=== PATIENT | female | born 2000 | race Caucasian/White ===

== ENCOUNTER 2021-11-04 02:40 | Emergency (ER) | payer SELFPAY | END 2021-11-04 03:04 | LOC: MW.ED 02:40 | DX: I10 Essential (primary) hypertension (principal); Z86.16 Personal history of COVID-19 | CPT/HCPCS: 99282; 99283 ==

== ENCOUNTER 2022-05-29 11:32 | Day surgery (SDC) | payer MEDICAID ==
[~2022-05-29 11:32] MED LIST: Lactated Ringers 1,000 ML IV SCH; Propofol 200 MG/20 ML SDV ONE; Sodium Chloride 0.9% 10 ML Syringe FLUSH PRN; Sodium Chloride 0.9% 2.5 ML Syringe FLUSH PRN; Sodium Chloride 0.9% 20 ML SDV IV PRN
[2022-05-29] MEDS ORDERED: Midazolam 1 MG/ML 2 ML SDV ONE (12:20)
[2022-05-29] MEDS ORDERED: Lidocaine 2% 5 ML SDV ONE (12:28)
== END 2022-05-29 13:23 | disposition home or self-care (01) ==
LOC: MW.SDS 11:32
PROVIDERS: ATTEND Surgery
DX: R10.13 Epigastric pain (principal); F41.9 Anxiety disorder, unspecified; E55.9 Vitamin D deficiency, unspecified; I10 Essential (primary) hypertension; J45.909 Unspecified asthma, uncomplicated; K21.9 Gastro-esophageal reflux disease without esophagitis; F32.A Depression, unspecified; E66.9 Obesity, unspecified; Z79.899 Other long term (current) drug therapy; Z98.890 Other specified postprocedural states; Z86.16 Personal history of COVID-19; Z87.891 Personal history of nicotine dependence; Z68.41 Body mass index [BMI] 40.0-44.9, adult
CPT/HCPCS: 43239; 81025; J2250; J2704; J7120; 00731; J3490

== ENCOUNTER 2022-12-04 08:57 | Inpatient (IN) | payer MEDICAID ==
[2022-12-04] MEDS ORDERED: Ondansetron 4 MG Tab.DIS PO ONE (09:06)
[2022-12-04] MEDS ORDERED: Sodium Chloride 0.9% 1,000 ML IV ONE (09:06)
[2022-12-04] MEDS ORDERED: Sodium Chloride 0.9% 2.5 ML Syringe FLUSH PRN ×2 (09:08→15:48)
[2022-12-04] MEDS ORDERED: Sodium Chloride 0.9% 10 ML Syringe FLUSH PRN ×2 (09:08→15:48)
[2022-12-04] MEDS ORDERED: Ondansetron 4 MG/2 ML SDV IVPUSH ONE ×2 (09:23→15:03)
[2022-12-04 09:28] LABS: BASOPHILS PERCENT AUTO 0.2 % (0.0-1.5); EOSINOPHILS ABSOLUTE AUTO 0.1 K/uL (0.0-0.7); EOSINOPHILS PERCENT AUTO 0.4 % (0.0-7.0); HEMATOCRIT 41.2 % (36.0-46.0); HEMOGLOBIN 14.5 g/dL (12.0-16.0); LYMPHOCYTES ABSOLUTE AUTO 4.4 K/uL (0.6-2.4); LYMPHOCYTES PERCENT AUTO 21.9 % (16.0-40.0); MEAN CORPUSCULAR HGB CONC 35.2 g/dL (31.0-37.0); MEAN CORPUSCULAR VOLUME 85.1 fL (80.0-98.0); NEUTROPHILS ABSOLUTE AUTO 14.6 K/uL (1.4-5.7); NEUTROPHILS PERCENT AUTO 72.5 % (48.0-80.0); NRBC ABSOLUTE 0 K/uL; PLATELET COUNT,PLT 505 K/uL (150-400); RED BLOOD CELL COUNT 4.84 M/uL (4.30-5.90); WHITE BLOOD CELL COUNT,WBC 20.19 K/uL (4.0-11.0)
[2022-12-04 10:05] LABS: INR 1.02 (0.86-1.11)
[2022-12-04] MEDS ORDERED: Metoclopramide 10 MG/2 ML SDV IVPUSH ONE ×2 (10:11→11:26)
[2022-12-04] MEDS ORDERED: diphenhydrAMINE 50 MG/ML SDV IVPUSH ONE (10:11)
[2022-12-04 10:25] LABS: ALANINE AMINOTRANSFERASE,ALT 27 IU/L (14-63); ALBUMIN 4.1 g/dL (3.4-5.0); ALKALINE PHOSPHATASE 74 U/L (46-116); ASPARTATE AMNIOTRANSFERASE,AST 14 IU/L (15-37); BILIRUBIN TOTAL 0.8 mg/dL (0.2-1.0); BLOOD UREA NITROGEN,BUN 7 mg/dL (7.0-18.0); CALCIUM 9.7 mg/dL (8.5-10.1); CARBON DIOXIDE,CO2 16.8 mmol/L (21.0-32.0); CHLORIDE,CL 98 mmol/L (98-107); CREATININE 0.7 mg/dL (0.6-1.0); GLUCOSE RANDOM 159 mg/dL (74-106); LIPASE 54 U/L (73-393); MAGNESIUM 1.6 mg/dL (1.8-2.4); POTASSIUM,K 3.1 mmol/L (3.5-5.1); PROTEIN TOTAL,TP 8.3 g/dL (6.4-8.2); SODIUM,NA 135 mmol/L (136-145); TSH ULTRASENSITIVE 0.87 uIU/mL (0.36-3.74)
[2022-12-04 10:27] LABS: ESTIMATED GFR 125 mL/min (>60)
[2022-12-04] MEDS ORDERED: Magnesium Sulfate/Water 2 GM in Premix Bag 1 BAG IV ONE (10:29)
[2022-12-04 10:50] LABS: LACTIC ACID 3.4 mmol/L (0.4-2.0)
[2022-12-04] MEDS ORDERED: Lactated Ringers 1,000 ML IV ONE ×2 (10:53→16:06)
[2022-12-04] MEDS ORDERED: Albuterol/Ipratropium 3.0-0.5 MG/3 ML Neb Soln NEB ONE (10:56)
[2022-12-04] MEDS ORDERED: cefTRIAXone 2 GM in Sodium Chloride 0.9% 50 ML IV ONE (11:36)
[2022-12-04 11:54] LABS: APPEARANCE,URINE CLEAR; BILIRUBIN,URINE NEGATIVE (NEGATIVE); COLOR,URINE YELLOW; GLUCOSE,URINE 100 mg/dL (NEGATIVE); KETONES,URINE >=80 mg/dL (NEGATIVE); LEUKOCYTE ESTERASE,URINE NEGATIVE (NEGATIVE); NITRITE,URINE POSITIVE (NEGATIVE); OCCULT BLOOD,URINE NEGATIVE (NEGATIVE); PH,URINE 6.5 (5.0-8.0); PROTEIN,URINE TRACE mg/dL (NEGATIVE); UROBILINOGEN,URINE 0.2 EU/dL (<2.0)
[2022-12-04 12:20] LABS: BACTERIA,URINE MODERATE (NEGATIVE); EPITHELIAL CELLS,URINE MANY (NONE-FEW); RBC,URINE NONE SEEN (0-2/HPF); WBC,URINE NONE SEEN (0-5/HPF)
[2022-12-04] MEDS ORDERED: Dextrose 5%-Lactated Ringers 1,000 ML IV SCH (12:45)
[2022-12-04] MEDS ORDERED: Morphine 2 MG/ML SYRINGE IVPUSH ONE (15:03)
[2022-12-04] MEDS ORDERED: Naloxone 0.4 MG/ML SDV IVPUSH PRN ×2 (15:03→15:48)
[2022-12-04] MEDS ORDERED: Morphine 2 MG/ML SYRINGE IVPUSH PRN (15:48)
[2022-12-04] MEDS ORDERED: Albuterol 0.083% 2.5 MG/3 ML Neb Soln NEB PRN (15:48)
[2022-12-04] MEDS ORDERED: diphenhydrAMINE 50 MG/ML SDV IVPUSH PRN (16:01)
[2022-12-04 16:04] LABS: AMPHETAMINES SCREEN, URINE NEGATIVE (CUTOFF=500); BARBITURATE SCREEN,URINE NEGATIVE (CUTOFF=200); BENZODIAZEPINES SCREEN,URINE PRESUMPTIVE POSITIVE (CUTOFF=150); BUPRENORPHINE SCREEN,URINE NEGATIVE (CUTOFF=10); METHADONE SCREEN, URINE NEGATIVE (CUTOFF=200); METHAMPHETAMINES SCREEN, URINE NEGATIVE (CUTOFF=500); OXYCODONE SCREEN,URINE NEGATIVE (CUT0FF=100); PCP SCREEN,URINE NEGATIVE (CUTOFF=25); PROPOXYPHENE SCREEN,URINE NEGATIVE (CUTOFF=300); THC SCREEN,URINE 20 NG/ML PRESUMPTIVE POSITIVE (CUTOFF=50)
[2022-12-04] MEDS: Lactated Ringers 1,000 ML IV SCH (16:08)
[2022-12-04] MEDS: Potassium Chloride 20 MEQ in Premix Bag 1 BAG IV SCH ×2 (16:08→18:04)
[2022-12-04] MEDS ORDERED: Propranolol 10 MG Tab PO PRN (16:09)
[2022-12-04] MEDS ORDERED: Labetalol 100 MG/20 ML MDV IVPUSH PRN (16:14)
[2022-12-04] MEDS ORDERED: Piperacillin/Tazobactam 3.375 GM in Sodium Chloride 0.9% 100 ML IV SCH (16:15)
[2022-12-04] MEDS: ClonazePAM 0.5 MG Tab PO PRN (16:35)
[2022-12-04] MEDS: Promethazine 25 MG/ML SDV IM PRN (17:46)
[2022-12-04 19:40] LABS: LACTIC ACID 2.5 mmol/L (0.4-2.0)
[2022-12-04] MEDS: Ondansetron 4 MG/2 ML SDV IVPUSH PRN (20:04)
[2022-12-04] MEDS: HYDROmorphone 1 MG/ML Syringe IVPUSH PRN (20:04)
[2022-12-05] MEDS: Lactated Ringers 1,000 ML IV SCH ×5 (00:41→21:03)
[2022-12-05] MEDS: Ondansetron 4 MG/2 ML SDV IVPUSH PRN ×5 (04:39→21:03)
[2022-12-05] MEDS: HYDROmorphone 1 MG/ML Syringe IVPUSH PRN ×5 (04:39→21:03)
[2022-12-05 07:25] LABS: BASOPHILS PERCENT AUTO 0.1 % (0.0-1.5); EOSINOPHILS PERCENT AUTO 0.1 % (0.0-7.0); HEMATOCRIT 38.1 % (36.0-46.0); HEMOGLOBIN 12.9 g/dL (12.0-16.0); LYMPHOCYTES ABSOLUTE AUTO 2.5 K/uL (0.6-2.4); LYMPHOCYTES PERCENT AUTO 16.6 % (16.0-40.0); MEAN CORPUSCULAR HEMOGLOBIN 29.7 pg (27.0-32.0); MEAN CORPUSCULAR HGB CONC 33.9 g/dL (31.0-37.0); MEAN CORPUSCULAR VOLUME 87.8 fL (80.0-98.0); MONOCYTES ABSOLUTE AUTO 1.1 K/uL (0.0-0.8); MONOCYTES PERCENT AUTO 7.1 % (0.0-15.0); NEUTROPHILS ABSOLUTE AUTO 11.4 K/uL (1.4-5.7); NEUTROPHILS PERCENT AUTO 76.1 % (48.0-80.0); NRBC ABSOLUTE 0 K/uL; PLATELET COUNT,PLT 378 K/uL (150-400); RED BLOOD CELL COUNT 4.34 M/uL (4.30-5.90); WHITE BLOOD CELL COUNT,WBC 14.96 K/uL (4.0-11.0)
[2022-12-05 07:43] LABS: CALCIUM 8.9 mg/dL (8.5-10.1); CARBON DIOXIDE,CO2 27.8 mmol/L (21.0-32.0); CREATININE 0.6 mg/dL (0.6-1.0); EST CRCL DRUG DOSING (CG) 116.32 mL/min; MAGNESIUM 2.2 mg/dL (1.8-2.4); POTASSIUM,K 3.7 mmol/L (3.5-5.1)
[2022-12-05] MEDS: cefTRIAXone 2 GM in Sodium Chloride 0.9% 100 ML IV SCH (12:29)
[2022-12-05] MEDS: Acetaminophen 325 MG Tab PO PRN (13:21)
[2022-12-05] MEDS: ClonazePAM 0.5 MG Tab PO PRN (21:04)
[2022-12-06] MEDS: HYDROmorphone 1 MG/ML Syringe IVPUSH PRN ×5 (01:03→21:50)
[2022-12-06] MEDS: Ondansetron 4 MG/2 ML SDV IVPUSH PRN ×5 (01:03→21:50)
[2022-12-06] MEDS: Lactated Ringers 1,000 ML IV SCH ×2 (03:46→10:12)
[2022-12-06 06:09] LABS: BASOPHILS PERCENT AUTO 0.3 % (0.0-1.5); EOSINOPHILS ABSOLUTE AUTO 0.1 K/uL (0.0-0.7); EOSINOPHILS PERCENT AUTO 0.6 % (0.0-7.0); HEMATOCRIT 35.9 % (36.0-46.0); HEMOGLOBIN 11.8 g/dL (12.0-16.0); LYMPHOCYTES ABSOLUTE AUTO 3.9 K/uL (0.6-2.4); LYMPHOCYTES PERCENT AUTO 34.7 % (16.0-40.0); MEAN CORPUSCULAR HEMOGLOBIN 29.3 pg (27.0-32.0); MEAN CORPUSCULAR HGB CONC 32.9 g/dL (31.0-37.0); MEAN CORPUSCULAR VOLUME 89.1 fL (80.0-98.0); MONOCYTES ABSOLUTE AUTO 0.8 K/uL (0.0-0.8); MONOCYTES PERCENT AUTO 6.8 % (0.0-15.0); NEUTROPHILS ABSOLUTE AUTO 6.5 K/uL (1.4-5.7); NEUTROPHILS PERCENT AUTO 57.6 % (48.0-80.0); NRBC ABSOLUTE 0 K/uL; PLATELET COUNT,PLT 328 K/uL (150-400); RED BLOOD CELL COUNT 4.03 M/uL (4.30-5.90); WHITE BLOOD CELL COUNT,WBC 11.26 K/uL (4.0-11.0)
[2022-12-06 06:46] LABS: CALCIUM 8.3 mg/dL (8.5-10.1); CARBON DIOXIDE,CO2 24.4 mmol/L (21.0-32.0); CREATININE 0.6 mg/dL (0.6-1.0); EST CRCL DRUG DOSING (CG) 116.32 mL/min; MAGNESIUM 1.9 mg/dL (1.8-2.4); PHOSPHORUS 2.9 mg/dL (2.6-4.7); POTASSIUM,K 3.6 mmol/L (3.5-5.1)
[2022-12-06] MEDS: cefTRIAXone 2 GM in Sodium Chloride 0.9% 100 ML IV SCH (12:05)
[2022-12-06] MEDS: ClonazePAM 0.5 MG Tab PO PRN (20:11)
[2022-12-06] MEDS: Acetaminophen 325 MG Tab PO PRN (20:11)
[2022-12-07] MEDS: Ondansetron 4 MG/2 ML SDV IVPUSH PRN ×2 (06:05→10:07)
[2022-12-07] MEDS: HYDROmorphone 1 MG/ML Syringe IVPUSH PRN ×2 (06:05→10:07)
[2022-12-07 06:17] LABS: BASOPHILS PERCENT AUTO 0.1 % (0.0-1.5); EOSINOPHILS ABSOLUTE AUTO 0.1 K/uL (0.0-0.7); EOSINOPHILS PERCENT AUTO 0.9 % (0.0-7.0); HEMATOCRIT 36.9 % (36.0-46.0); HEMOGLOBIN 12.2 g/dL (12.0-16.0); LYMPHOCYTES ABSOLUTE AUTO 2.7 K/uL (0.6-2.4); LYMPHOCYTES PERCENT AUTO 28.9 % (16.0-40.0); MEAN CORPUSCULAR HGB CONC 33.1 g/dL (31.0-37.0); MEAN CORPUSCULAR VOLUME 87.6 fL (80.0-98.0); MONOCYTES ABSOLUTE AUTO 0.6 K/uL (0.0-0.8); MONOCYTES PERCENT AUTO 6.2 % (0.0-15.0); NEUTROPHILS ABSOLUTE AUTO 5.9 K/uL (1.4-5.7); NEUTROPHILS PERCENT AUTO 63.9 % (48.0-80.0); NRBC ABSOLUTE 0 K/uL; PLATELET COUNT,PLT 335 K/uL (150-400); RED BLOOD CELL COUNT 4.21 M/uL (4.30-5.90); WHITE BLOOD CELL COUNT,WBC 9.18 K/uL (4.0-11.0)
[2022-12-07 06:34] LABS: CALCIUM 8.7 mg/dL (8.5-10.1); CARBON DIOXIDE,CO2 23.8 mmol/L (21.0-32.0); CREATININE 0.6 mg/dL (0.6-1.0); EST CRCL DRUG DOSING (CG) 116.32 mL/min; POTASSIUM,K 3.5 mmol/L (3.5-5.1)
[2022-12-07] MEDS: Acetaminophen 325 MG Tab PO PRN (07:21)
[2022-12-07] MEDS: Promethazine 25 MG/ML SDV IM PRN (07:25)
[2022-12-07] MEDS: cefTRIAXone 2 GM in Sodium Chloride 0.9% 100 ML IV SCH (11:13)
== END 2022-12-07 15:45 | disposition home or self-care (01) | DRG 832 ==
LOC: MW.ED 08:57 → MW.MS 14:54
PROVIDERS: ADMIT Internal Medicine; ATTEND Internal Medicine
DX: O23.01 Infections of kidney in pregnancy, first trimester (principal); N10 Acute pyelonephritis; O10.911 Unspecified pre-existing hypertension complicating pregnancy, first trimester; O21.0 Mild hyperemesis gravidarum; O99.611 Diseases of the digestive system complicating pregnancy, first trimester; O99.211 Obesity complicating pregnancy, first trimester; O99.511 Diseases of the respiratory system complicating pregnancy, first trimester; O99.321 Drug use complicating pregnancy, first trimester; F12.10 Cannabis abuse, uncomplicated; O99.341 Other mental disorders complicating pregnancy, first trimester; F41.9 Anxiety disorder, unspecified; F32.A Depression, unspecified; E66.9 Obesity, unspecified; K21.9 Gastro-esophageal reflux disease without esophagitis; J45.909 Unspecified asthma, uncomplicated; Z20.822 Contact with and (suspected) exposure to COVID-19; Z3A.08 8 weeks gestation of pregnancy; Z79.899 Other long term (current) drug therapy; Z86.16 Personal history of COVID-19
CPT/HCPCS: 36415; 71045; 76775; 76801; 80053; 80305; 81001; 83605; 83690; 83735; 84443; 84484; 84702; 85025; 85610; 87040 ×2; 87086; 87635; 93005; 96361; 96365; 96367; 96375; 96376; 99285; J0696; J1200; J2405; J2765 ×2; J3475; J3490 ×2; J7030; J7120; J7121; 80048; 82947; 84100; 93010; 99283; A9270-GY; J1170; J2270; J2550; J3480; J7620-GY; U0002

== ENCOUNTER 2022-12-09 08:50 | Emergency (ER) | payer MEDICAID ==
[2022-12-09] MEDS ORDERED: Sodium Chloride 0.9% 1,000 ML IV ONE (09:21)
[2022-12-09] MEDS ORDERED: diphenhydrAMINE 50 MG/ML SDV IVPUSH ONE (09:21)
[2022-12-09] MEDS ORDERED: droPERidol 5 MG/2 ML SDV IVPUSH ONE ×2 (09:21→11:33)
[2022-12-09 09:44] LABS: BILIRUBIN,URINE NEGATIVE (NEGATIVE); COLOR,URINE YELLOW; GLUCOSE,URINE NEGATIVE (NEGATIVE); KETONES,URINE TRACE mg/dL (NEGATIVE); LEUKOCYTE ESTERASE,URINE SMALL (NEGATIVE); NITRITE,URINE NEGATIVE (NEGATIVE); OCCULT BLOOD,URINE NEGATIVE (NEGATIVE); PH,URINE 7.5 (5.0-8.0); PROTEIN,URINE TRACE mg/dL (NEGATIVE); UROBILINOGEN,URINE 0.2 EU/dL (<2.0)
[2022-12-09 09:46] LABS: BASOPHILS PERCENT AUTO 0.2 % (0.0-1.5); EOSINOPHILS ABSOLUTE AUTO 0.2 K/uL (0.0-0.7); EOSINOPHILS PERCENT AUTO 1.5 % (0.0-7.0); HEMATOCRIT 40.6 % (36.0-46.0); HEMOGLOBIN 13.9 g/dL (12.0-16.0); LYMPHOCYTES ABSOLUTE AUTO 2.6 K/uL (0.6-2.4); LYMPHOCYTES PERCENT AUTO 23.7 % (16.0-40.0); MEAN CORPUSCULAR HEMOGLOBIN 29.7 pg (27.0-32.0); MEAN CORPUSCULAR HGB CONC 34.2 g/dL (31.0-37.0); MEAN CORPUSCULAR VOLUME 86.8 fL (80.0-98.0); MONOCYTES ABSOLUTE AUTO 0.7 K/uL (0.0-0.8); MONOCYTES PERCENT AUTO 5.9 % (0.0-15.0); NEUTROPHILS ABSOLUTE AUTO 7.7 K/uL (1.4-5.7); NEUTROPHILS PERCENT AUTO 68.7 % (48.0-80.0); NRBC ABSOLUTE 0 K/uL; PLATELET COUNT,PLT 377 K/uL (150-400); RED BLOOD CELL COUNT 4.68 M/uL (4.30-5.90); WHITE BLOOD CELL COUNT,WBC 11.16 K/uL (4.0-11.0)
[2022-12-09 09:53] LABS: AMPHETAMINES SCREEN, URINE NEGATIVE (CUTOFF=500); BARBITURATE SCREEN,URINE NEGATIVE (CUTOFF=200); BENZODIAZEPINES SCREEN,URINE PRESUMPTIVE POSITIVE (CUTOFF=150); BUPRENORPHINE SCREEN,URINE NEGATIVE (CUTOFF=10); METHADONE SCREEN, URINE NEGATIVE (CUTOFF=200); METHAMPHETAMINES SCREEN, URINE NEGATIVE (CUTOFF=500); OXYCODONE SCREEN,URINE NEGATIVE (CUT0FF=100); PCP SCREEN,URINE NEGATIVE (CUTOFF=25); PROPOXYPHENE SCREEN,URINE NEGATIVE (CUTOFF=300); THC SCREEN,URINE 20 NG/ML PRESUMPTIVE POSITIVE (CUTOFF=50)
[2022-12-09 10:02] LABS: BASE EXCESS VENOUS 2.1 (-2.0-3.0); BICARBONATE,VENOUS 25 mEq/L (23-28); PCO2 VENOUS 34 mmHG (41-51); PH,VENOUS 7.48 (7.31-7.41)
[2022-12-09 10:08] LABS: ALANINE AMINOTRANSFERASE,ALT 30 IU/L (14-63); ALBUMIN 3.8 g/dL (3.4-5.0); ALKALINE PHOSPHATASE 65 U/L (46-116); ASPARTATE AMNIOTRANSFERASE,AST 12 IU/L (15-37); BILIRUBIN TOTAL 0.7 mg/dL (0.2-1.0); BLOOD UREA NITROGEN,BUN 11 mg/dL (7.0-18.0); CALCIUM 10.1 mg/dL (8.5-10.1); CARBON DIOXIDE,CO2 23.7 mmol/L (21.0-32.0); CHLORIDE,CL 99 mmol/L (98-107); CREATININE 0.7 mg/dL (0.6-1.0); ETHANOL BLOOD MEDICAL <3 mg/dL; GLUCOSE RANDOM 103 mg/dL (74-106); LIPASE 73 U/L (73-393); MAGNESIUM 1.7 mg/dL (1.8-2.4); PHOSPHORUS 3.2 mg/dL (2.6-4.7); POTASSIUM,K 3.6 mmol/L (3.5-5.1); PROTEIN TOTAL,TP 7.5 g/dL (6.4-8.2); SODIUM,NA 137 mmol/L (136-145); TSH ULTRASENSITIVE 0.46 uIU/mL (0.36-3.74)
[2022-12-09 10:09] LABS: APPEARANCE,URINE CLOUDY
[2022-12-09 10:10] LABS: EPITHELIAL CELLS,URINE MODERATE (NONE-FEW)
[2022-12-09 10:11] LABS: AMORPHOUS SEDIMENT,URINE HEAVY (NEGATIVE); BACTERIA,URINE 2+ (NEGATIVE); MUCUS,URINE LIGHT (NONE-MOD)
[2022-12-09 10:11] LABS: ESTIMATED GFR 125 mL/min (>60)
[2022-12-09 10:12] LABS: PO2 VENOUS < 30 mmHG
[2022-12-09 10:36] LABS: LACTIC ACID 2.2 mmol/L (0.4-2.0)
[2022-12-09] MEDS ORDERED: Naloxone 0.4 MG/ML SDV IVPUSH PRN (11:35)
[2022-12-09] MEDS ORDERED: 50% Dextrose in Water 50 ML Syringe IVPUSH ONE (11:35)
[2022-12-09] MEDS ORDERED: fentaNYL 100 MCG/2 ML SDV IVPUSH ONE (11:35)
== END 2022-12-09 12:50 | disposition left against medical advice (07) ==
LOC: MW.ED 08:50
DX: O21.0 Mild hyperemesis gravidarum (principal); O99.321 Drug use complicating pregnancy, first trimester; F12.90 Cannabis use, unspecified, uncomplicated; O10.911 Unspecified pre-existing hypertension complicating pregnancy, first trimester; O99.511 Diseases of the respiratory system complicating pregnancy, first trimester; J45.909 Unspecified asthma, uncomplicated; O99.611 Diseases of the digestive system complicating pregnancy, first trimester; K21.9 Gastro-esophageal reflux disease without esophagitis; O99.211 Obesity complicating pregnancy, first trimester; Z86.16 Personal history of COVID-19; Z79.899 Other long term (current) drug therapy; Z3A.09 9 weeks gestation of pregnancy
CPT/HCPCS: 36415; 76801; 80053; 80305; 80307; 81001; 82803; 83605; 83690; 83735; 84100; 84443; 85025; 87040; 93005; 96361; 96374; 96375; 96376; 99284; J1200; J1790; J3010; J7030; 93010; 99283; J3490

== ENCOUNTER 2022-12-18 15:51 | Observation (INO) | payer MEDICAID ==
[2022-12-18] MEDS ORDERED: Sodium Chloride 0.9% 1,000 ML IV ONE ×2 (16:57→17:50)
[2022-12-18] MEDS ORDERED: Sodium Chloride 0.9% 10 ML Syringe FLUSH PRN (16:57)
[2022-12-18] MEDS ORDERED: Sodium Chloride 0.9% 2.5 ML Syringe FLUSH PRN (16:57)
[2022-12-18] MEDS ORDERED: droPERidol 5 MG/2 ML SDV IVPUSH ONE (16:58)
[2022-12-18] MEDS ORDERED: diphenhydrAMINE 50 MG/ML SDV IVPUSH ONE (17:00)
[2022-12-18 17:30] LABS: BASOPHILS PERCENT AUTO 0.2 % (0.0-1.5); EOSINOPHILS ABSOLUTE AUTO 0.1 K/uL (0.0-0.7); EOSINOPHILS PERCENT AUTO 0.6 % (0.0-7.0); HEMATOCRIT 43.7 % (36.0-46.0); HEMOGLOBIN 14.8 g/dL (12.0-16.0); LYMPHOCYTES ABSOLUTE AUTO 4.8 K/uL (0.6-2.4); LYMPHOCYTES PERCENT AUTO 33.9 % (16.0-40.0); MEAN CORPUSCULAR HEMOGLOBIN 29.5 pg (27.0-32.0); MEAN CORPUSCULAR HGB CONC 33.9 g/dL (31.0-37.0); MEAN CORPUSCULAR VOLUME 87.2 fL (80.0-98.0); MONOCYTES ABSOLUTE AUTO 0.7 K/uL (0.0-0.8); MONOCYTES PERCENT AUTO 4.9 % (0.0-15.0); NEUTROPHILS ABSOLUTE AUTO 8.6 K/uL (1.4-5.7); NEUTROPHILS PERCENT AUTO 60.4 % (48.0-80.0); NRBC ABSOLUTE 0 K/uL; PLATELET COUNT,PLT 415 K/uL (150-400); RED BLOOD CELL COUNT 5.01 M/uL (4.30-5.90); WHITE BLOOD CELL COUNT,WBC 14.26 K/uL (4.0-11.0)
[2022-12-18 17:36] LABS: A/G RATIO 0.9 (0.9-1.6); ALANINE AMINOTRANSFERASE,ALT 23 IU/L (14-63); ALKALINE PHOSPHATASE 64 U/L (46-116); ASPARTATE AMNIOTRANSFERASE,AST 17 IU/L (15-37); BILIRUBIN TOTAL 1.1 mg/dL (0.2-1.0); BLOOD UREA NITROGEN,BUN 7 mg/dL (7.0-18.0); CALCIUM 10.1 mg/dL (8.5-10.1); CARBON DIOXIDE,CO2 18.5 mmol/L (21.0-32.0); CHLORIDE,CL 99 mmol/L (98-107); CREATININE 0.8 mg/dL (0.6-1.0); EST CRCL DRUG DOSING (CG) 95.25 mL/min; GLUCOSE RANDOM 127 mg/dL (74-106); INR 0.99 (0.86-1.11); LIPASE 126 U/L (73-393); POTASSIUM,K 3.7 mmol/L (3.5-5.1); PROTEIN TOTAL,TP 8.4 g/dL (6.4-8.2); SODIUM,NA 135 mmol/L (136-145)
[2022-12-18 17:37] LABS: ESTIMATED GFR 107 mL/min (>60); ETHANOL BLOOD MEDICAL < 3.0 mg/dL
[2022-12-18 18:39] LABS: APPEARANCE,URINE SLT CLOUDY; BILIRUBIN,URINE NEGATIVE (NEGATIVE); COLOR,URINE YELLOW; GLUCOSE,URINE NEGATIVE (NEGATIVE); KETONES,URINE >=80 mg/dL (NEGATIVE); LEUKOCYTE ESTERASE,URINE NEGATIVE (NEGATIVE); NITRITE,URINE NEGATIVE (NEGATIVE); OCCULT BLOOD,URINE NEGATIVE (NEGATIVE); PH,URINE 7.5 (5.0-8.0); PROTEIN,URINE 30 mg/dL (NEGATIVE); UROBILINOGEN,URINE 0.2 EU/dL (<2.0)
[2022-12-18 18:50] LABS: LACTIC ACID 3.1 mmol/L (0.4-2.0)
[2022-12-18 19:01] LABS: BACTERIA,URINE 1+ (NEGATIVE); EPITHELIAL CELLS,URINE MODERATE (NONE-FEW); RBC,URINE 0-1 (0-2/HPF)
[2022-12-18] MEDS ORDERED: cefTRIAXone 1 GM in Sodium Chloride 0.9% 50 ML IV ONE (19:11)
[2022-12-18] MEDS ORDERED: Metoclopramide 10 MG/2 ML SDV IVPUSH ONE (19:13)
[2022-12-18] MEDS ORDERED: Metoclopramide 10 MG/2 ML SDV IVPUSH PRN (21:34)
[2022-12-18] MEDS: HYDROmorphone 1 MG/ML Syringe IVPUSH PRN (21:55)
[2022-12-18] MEDS: Ondansetron 4 MG/2 ML SDV IVPUSH PRN (21:55)
[2022-12-18] MEDS: Sodium Chloride 0.9% 1,000 ML IV SCH (21:56)
[2022-12-19] MEDS: Thiamine 200 MG/2 ML MDV IVPUSH SCH ×2 (00:41→09:47)
[2022-12-19] MEDS: Ondansetron 4 MG/2 ML SDV IVPUSH PRN ×5 (02:46→23:47)
[2022-12-19] MEDS: HYDROmorphone 1 MG/ML Syringe IVPUSH PRN ×6 (02:46→23:47)
[2022-12-19] MEDS: Sodium Chloride 0.9% 1,000 ML IV SCH ×3 (05:42→21:23)
[2022-12-19] MEDS ORDERED: Calcium Carbonate 500 MG Tab.Chew PO ONE (05:54)
[2022-12-19 06:00] LABS: BASOPHILS PERCENT AUTO 0.1 % (0.0-1.5); HEMATOCRIT 38.4 % (36.0-46.0); HEMOGLOBIN 12.5 g/dL (12.0-16.0); LYMPHOCYTES ABSOLUTE AUTO 1.6 K/uL (0.6-2.4); MEAN CORPUSCULAR HEMOGLOBIN 28.8 pg (27.0-32.0); MEAN CORPUSCULAR HGB CONC 32.6 g/dL (31.0-37.0); MEAN CORPUSCULAR VOLUME 88.5 fL (80.0-98.0); MONOCYTES ABSOLUTE AUTO 0.4 K/uL (0.0-0.8); MONOCYTES PERCENT AUTO 2.8 % (0.0-15.0); NEUTROPHILS ABSOLUTE AUTO 12.1 K/uL (1.4-5.7); NEUTROPHILS PERCENT AUTO 86.1 % (48.0-80.0); NRBC ABSOLUTE 0 K/uL; PLATELET COUNT,PLT 347 K/uL (150-400); RED BLOOD CELL COUNT 4.34 M/uL (4.30-5.90); WHITE BLOOD CELL COUNT,WBC 14.11 K/uL (4.0-11.0)
[2022-12-19 06:30] LABS: CALCIUM 8.1 mg/dL (8.5-10.1); CARBON DIOXIDE,CO2 22.5 mmol/L (21.0-32.0); CREATININE 0.6 mg/dL (0.6-1.0); POTASSIUM,K 3.7 mmol/L (3.5-5.1)
[2022-12-19] MEDS ORDERED: Calcium Carbonate 500 MG Tab.Chew PO PRN (13:11)
[2022-12-19] MEDS ORDERED: ClonazePAM 1 MG Tab PO PRN (13:15)
[2022-12-19] MEDS: Escitalopram 10 MG Tab PO SCH (13:39)
[2022-12-19] MEDS: Pantoprazole 40 MG Tab.CR PO SCH (13:43)
[2022-12-20] MEDS: HYDROmorphone 1 MG/ML Syringe IVPUSH PRN ×2 (05:11→10:19)
[2022-12-20] MEDS: Ondansetron 4 MG/2 ML SDV IVPUSH PRN (05:11)
[2022-12-20] MEDS: Sodium Chloride 0.9% 1,000 ML IV SCH (05:13)
[2022-12-20 06:14] LABS: BASOPHILS PERCENT AUTO 0.3 % (0.0-1.5); EOSINOPHILS ABSOLUTE AUTO 0.1 K/uL (0.0-0.7); EOSINOPHILS PERCENT AUTO 0.9 % (0.0-7.0); HEMATOCRIT 33.2 % (36.0-46.0); HEMOGLOBIN 10.8 g/dL (12.0-16.0); LYMPHOCYTES ABSOLUTE AUTO 3.9 K/uL (0.6-2.4); LYMPHOCYTES PERCENT AUTO 43.3 % (16.0-40.0); MEAN CORPUSCULAR HEMOGLOBIN 29.3 pg (27.0-32.0); MEAN CORPUSCULAR HGB CONC 32.5 g/dL (31.0-37.0); MONOCYTES ABSOLUTE AUTO 0.7 K/uL (0.0-0.8); MONOCYTES PERCENT AUTO 7.2 % (0.0-15.0); NEUTROPHILS ABSOLUTE AUTO 4.3 K/uL (1.4-5.7); NEUTROPHILS PERCENT AUTO 48.3 % (48.0-80.0); NRBC ABSOLUTE 0 K/uL; PLATELET COUNT,PLT 309 K/uL (150-400); RED BLOOD CELL COUNT 3.69 M/uL (4.30-5.90)
[2022-12-20] MEDS: Pantoprazole 40 MG Tab.CR PO SCH (06:40)
[2022-12-20 06:59] LABS: A/G RATIO 0.9 (0.9-1.6); ALBUMIN 2.9 g/dL (3.4-5.0); BILIRUBIN TOTAL 0.4 mg/dL (0.2-1.0); CALCIUM 8.1 mg/dL (8.5-10.1); CARBON DIOXIDE,CO2 25.6 mmol/L (21.0-32.0); CREATININE 0.5 mg/dL (0.6-1.0); EST CRCL DRUG DOSING (CG) 152.4 mL/min; MAGNESIUM 1.8 mg/dL (1.8-2.4); PHOSPHORUS 2.4 mg/dL (2.6-4.7); POTASSIUM,K 3.7 mmol/L (3.5-5.1); PROTEIN TOTAL,TP 6.2 g/dL (6.4-8.2)
[2022-12-20] MEDS: Escitalopram 10 MG Tab PO SCH (08:58)
[2022-12-20] MEDS: Thiamine 200 MG/2 ML MDV IVPUSH SCH (08:58)
[2022-12-20] MEDS: Phosphorus #1 250 MG Tab PO SCH ×2 (11:02→11:45)
== END 2022-12-20 14:10 | disposition home or self-care (01) ==
LOC: MW.ED 15:51 → MW.MS 19:05
PROVIDERS: ADMIT Internal Medicine; ATTEND Internal Medicine
DX: O21.1 Hyperemesis gravidarum with metabolic disturbance (principal); O99.341 Other mental disorders complicating pregnancy, first trimester; F41.9 Anxiety disorder, unspecified; F32.A Depression, unspecified; F43.10 Post-traumatic stress disorder, unspecified; O10.911 Unspecified pre-existing hypertension complicating pregnancy, first trimester; O99.211 Obesity complicating pregnancy, first trimester; E66.9 Obesity, unspecified; U07.1 COVID-19; O99.511 Diseases of the respiratory system complicating pregnancy, first trimester; J45.909 Unspecified asthma, uncomplicated; O99.611 Diseases of the digestive system complicating pregnancy, first trimester; K21.9 Gastro-esophageal reflux disease without esophagitis; Z3A.10 10 weeks gestation of pregnancy; Z79.899 Other long term (current) drug therapy
CPT/HCPCS: 36415; 80048; 80053; 80307; 81001; 82947; 83605; 83690; 83735; 84100; 85025; 85610; 87040; 93005; A9270; J0696; J1170; J1200; J1790; J2405; J2765; J3411; J3490; J7030; 96361; 96365; 96375; 96376; 99284; 99285-25; G0378

== ENCOUNTER 2022-12-23 14:23 | Emergency (ER) | payer SELFPAY ==
[2022-12-23] MEDS ORDERED: Lidocaine/Prilocaine 2.5-2.5% Crm 5 GM Tube TOP ONE (16:00)
[2022-12-23] MEDS ORDERED: Polyethylene Glycol 3350 Powder 17 GM Packet PO ONE (16:01)
[2022-12-23] MEDS ORDERED: Docusate Sodium 100 MG Cap PO ONE (16:01)
== END 2022-12-23 17:06 | disposition home or self-care (01) ==
LOC: MW.ED 14:23
DX: K59.00 Constipation, unspecified (principal); I10 Essential (primary) hypertension; E66.9 Obesity, unspecified; Z79.899 Other long term (current) drug therapy; Z86.16 Personal history of COVID-19; Z3A.12 12 weeks gestation of pregnancy; Z68.41 Body mass index [BMI] 40.0-44.9, adult
CPT/HCPCS: 99283; A9270

== ENCOUNTER 2022-12-28 08:48 | Emergency (ER) | payer MEDICAID ==
[2022-12-28] MEDS ORDERED: Acetaminophen 325 MG Tab PO ONE (08:57)
[2022-12-28] MEDS ORDERED: Ondansetron 4 MG Tab.DIS PO ONE (09:01)
== END 2022-12-28 10:13 | disposition home or self-care (01) ==
LOC: MW.ED 08:48
DX: O21.9 Vomiting of pregnancy, unspecified (principal); K21.9 Gastro-esophageal reflux disease without esophagitis; I10 Essential (primary) hypertension; Z3A.00 Weeks of gestation of pregnancy not specified; E66.9 Obesity, unspecified; Z68.41 Body mass index [BMI] 40.0-44.9, adult; Z79.899 Other long term (current) drug therapy; Z86.16 Personal history of COVID-19; Z20.822 Contact with and (suspected) exposure to COVID-19
CPT/HCPCS: 87635; 99284; A9270; 99283; U0002

== ENCOUNTER 2023-01-10 06:25 | Inpatient (IN) | payer MEDICAID ==
[2023-01-10] MEDS ORDERED: Sodium Chloride 0.9% 10 ML Syringe FLUSH PRN (06:31)
[2023-01-10] MEDS ORDERED: Sodium Chloride 0.9% 1,000 ML IV ONE (06:31)
[2023-01-10] MEDS ORDERED: Metoclopramide 10 MG/2 ML SDV IVPUSH ONE (06:31)
[2023-01-10] MEDS ORDERED: Sodium Chloride 0.9% 2.5 ML Syringe FLUSH PRN (06:31)
[2023-01-10] MEDS ORDERED: Famotidine 20 MG/2 ML SDV IVPUSH ONE (06:31)
[2023-01-10] MEDS ORDERED: diphenhydrAMINE 50 MG/ML SDV IVPUSH ONE (06:35)
[2023-01-10 06:45] LABS: BASOPHILS PERCENT AUTO 0.1 % (0.0-1.5); HEMATOCRIT 40.1 % (36.0-46.0); HEMOGLOBIN 14.1 g/dL (12.0-16.0); LYMPHOCYTES ABSOLUTE AUTO 1.5 K/uL (0.6-2.4); LYMPHOCYTES PERCENT AUTO 6.5 % (16.0-40.0); MEAN CORPUSCULAR HEMOGLOBIN 30.4 pg (27.0-32.0); MEAN CORPUSCULAR HGB CONC 35.2 g/dL (31.0-37.0); MEAN CORPUSCULAR VOLUME 86.4 fL (80.0-98.0); MONOCYTES ABSOLUTE AUTO 0.8 K/uL (0.0-0.8); MONOCYTES PERCENT AUTO 3.4 % (0.0-15.0); NEUTROPHILS ABSOLUTE AUTO 20.6 K/uL (1.4-5.7); NRBC ABSOLUTE 0 K/uL; PLATELET COUNT,PLT 433 K/uL (150-400); RED BLOOD CELL COUNT 4.64 M/uL (4.30-5.90); WHITE BLOOD CELL COUNT,WBC 22.91 K/uL (4.0-11.0)
[2023-01-10 07:06] LABS: ALANINE AMINOTRANSFERASE,ALT 20 IU/L (14-63); ALBUMIN 4.2 g/dL (3.4-5.0); ALKALINE PHOSPHATASE 62 U/L (46-116); ASPARTATE AMNIOTRANSFERASE,AST 15 IU/L (15-37); BILIRUBIN TOTAL 0.6 mg/dL (0.2-1.0); BLOOD UREA NITROGEN,BUN 6 mg/dL (7.0-18.0); CALCIUM 10.2 mg/dL (8.5-10.1); CARBON DIOXIDE,CO2 13.8 mmol/L (21.0-32.0); CREATININE 0.9 mg/dL (0.6-1.0); GLUCOSE RANDOM 213 mg/dL (74-106); MAGNESIUM 1.3 mg/dL (1.8-2.4); POTASSIUM,K 2.8 mmol/L (3.5-5.1); PROTEIN TOTAL,TP 8.4 g/dL (6.4-8.2)
[2023-01-10 07:20] LABS: CHLORIDE,CL 97 mmol/L (98-107); SODIUM,NA 133 mmol/L (136-145)
[2023-01-10 07:21] LABS: ESTIMATED GFR 93 mL/min (>60)
[2023-01-10] MEDS ORDERED: Potassium Chloride 10 MEQ in Premix Bag 1 BAG IV ONE (07:35)
[2023-01-10] MEDS ORDERED: Potassium Chloride 20 MEQ in Premix Bag 1 BAG IV ONE (07:39)
[2023-01-10] MEDS ORDERED: Sodium Chloride 0.9% 250 ML IV SCH (07:45)
[2023-01-10 08:04] LABS: APPEARANCE,URINE CLEAR; BILIRUBIN,URINE NEGATIVE (NEGATIVE); COLOR,URINE YELLOW; GLUCOSE,URINE 250 mg/dL (NEGATIVE); KETONES,URINE >=80 mg/dL (NEGATIVE); LEUKOCYTE ESTERASE,URINE NEGATIVE (NEGATIVE); NITRITE,URINE NEGATIVE (NEGATIVE); OCCULT BLOOD,URINE NEGATIVE (NEGATIVE); PROTEIN,URINE TRACE mg/dL (NEGATIVE); UROBILINOGEN,URINE 0.2 EU/dL (<2.0)
[2023-01-10] MEDS ORDERED: Morphine 4 MG/ML Syringe IVPUSH ONE (08:04)
[2023-01-10] MEDS ORDERED: Naloxone 0.4 MG/ML SDV IVPUSH PRN (08:04)
[2023-01-10 08:15] LABS: BACTERIA,URINE 1+ (NEGATIVE); EPITHELIAL CELLS,URINE MODERATE (NONE-FEW); RBC,URINE 0-2 (0-2/HPF); WBC,URINE 0-2 (0-5/HPF)
[2023-01-10] MEDS ORDERED: Promethazine 25 MG/ML SDV IM ONE (09:36)
[2023-01-10] MEDS ORDERED: cefTRIAXone 1 GM in Sodium Chloride 0.9% 50 ML IV ONE (10:20)
[2023-01-10] MEDS ORDERED: cefTRIAXone 1 GM Vial ONE (12:12)
[2023-01-10] MEDS ORDERED: Sodium Chloride 0.9% 10 ML SDV IV ONE (12:27)
[2023-01-10] MEDS ORDERED: MVI, Adult with Vitamin K 10 ML SDV IV SCH (12:30)
[2023-01-10] MEDS ORDERED: Sodium Chloride 0.9% 2,000 ML IV ONE (12:45)
[2023-01-10 12:46] LABS: AMPHETAMINES SCREEN, URINE NEGATIVE (CUTOFF=500); BARBITURATE SCREEN,URINE NEGATIVE (CUTOFF=200); BENZODIAZEPINES SCREEN,URINE PRESUMPTIVE POSITIVE (CUTOFF=150); BUPRENORPHINE SCREEN,URINE NEGATIVE (CUTOFF=10); METHADONE SCREEN, URINE NEGATIVE (CUTOFF=200); METHAMPHETAMINES SCREEN, URINE NEGATIVE (CUTOFF=500); OXYCODONE SCREEN,URINE NEGATIVE (CUT0FF=100); PCP SCREEN,URINE NEGATIVE (CUTOFF=25); PROPOXYPHENE SCREEN,URINE NEGATIVE (CUTOFF=300); THC SCREEN,URINE 20 NG/ML PRESUMPTIVE POSITIVE (CUTOFF=50)
[2023-01-10 13:52] LABS: LACTIC ACID 2.5 mmol/L (0.4-2.0)
[2023-01-10] MEDS ORDERED: NS with KCl 40mEq 1,000 ML IV SCH (14:45)
[2023-01-10] MEDS: Ondansetron 4 MG/2 ML SDV IVPUSH PRN ×2 (15:04→19:42)
[2023-01-10] MEDS: Morphine 2 MG/ML SYRINGE IVPUSH PRN ×2 (16:13→20:36)
[2023-01-10] MEDS: Promethazine 25 MG/ML SDV IM PRN ×2 (16:25→22:16)
[2023-01-10] MEDS: Pantoprazole 40 MG in Sodium Chloride 0.9% 10 ML IVPUSH SCH (17:16)
[2023-01-10 19:47] LABS: BASOPHILS PERCENT AUTO 0.1 % (0.0-1.5); HEMATOCRIT 41.3 % (36.0-46.0); HEMOGLOBIN 14.3 g/dL (12.0-16.0); LYMPHOCYTES ABSOLUTE AUTO 1.8 K/uL (0.6-2.4); LYMPHOCYTES PERCENT AUTO 9.8 % (16.0-40.0); MEAN CORPUSCULAR HGB CONC 34.6 g/dL (31.0-37.0); MEAN CORPUSCULAR VOLUME 86.8 fL (80.0-98.0); MONOCYTES ABSOLUTE AUTO 0.7 K/uL (0.0-0.8); MONOCYTES PERCENT AUTO 4.1 % (0.0-15.0); NEUTROPHILS ABSOLUTE AUTO 15.5 K/uL (1.4-5.7); NRBC ABSOLUTE 0 K/uL; PLATELET COUNT,PLT 395 K/uL (150-400); RED BLOOD CELL COUNT 4.76 M/uL (4.30-5.90); WHITE BLOOD CELL COUNT,WBC 18.03 K/uL (4.0-11.0)
[2023-01-10 20:06] LABS: CALCIUM 8.8 mg/dL (8.5-10.1); CARBON DIOXIDE,CO2 15.3 mmol/L (21.0-32.0); CREATININE 0.6 mg/dL (0.6-1.0); EST CRCL DRUG DOSING (CG) 116.32 mL/min; POTASSIUM,K 3.3 mmol/L (3.5-5.1)
[2023-01-11] MEDS: Ondansetron 4 MG/2 ML SDV IVPUSH PRN ×4 (00:40→18:04)
[2023-01-11] MEDS: Morphine 2 MG/ML SYRINGE IVPUSH PRN (00:40)
[2023-01-11] MEDS ORDERED: Melatonin 3 MG Tab PO PRN (00:50)
[2023-01-11] MEDS: ClonazePAM 1 MG Tab PO PRN (00:56)
[2023-01-11] MEDS: HYDROmorphone 1 MG/ML Syringe IVPUSH PRN ×5 (04:39→20:45)
[2023-01-11] MEDS: Promethazine 25 MG/ML SDV IM PRN ×3 (04:44→20:42)
[2023-01-11 06:42] LABS: BASOPHILS PERCENT AUTO 0.1 % (0.0-1.5); HEMATOCRIT 37.6 % (36.0-46.0); HEMOGLOBIN 12.6 g/dL (12.0-16.0); LYMPHOCYTES PERCENT AUTO 12.6 % (16.0-40.0); MEAN CORPUSCULAR HEMOGLOBIN 29.6 pg (27.0-32.0); MEAN CORPUSCULAR HGB CONC 33.5 g/dL (31.0-37.0); MEAN CORPUSCULAR VOLUME 88.3 fL (80.0-98.0); MONOCYTES ABSOLUTE AUTO 0.9 K/uL (0.0-0.8); MONOCYTES PERCENT AUTO 5.8 % (0.0-15.0); NEUTROPHILS ABSOLUTE AUTO 12.7 K/uL (1.4-5.7); NEUTROPHILS PERCENT AUTO 81.5 % (48.0-80.0); NRBC ABSOLUTE 0 K/uL; PLATELET COUNT,PLT 363 K/uL (150-400); RED BLOOD CELL COUNT 4.26 M/uL (4.30-5.90); WHITE BLOOD CELL COUNT,WBC 15.52 K/uL (4.0-11.0)
[2023-01-11 07:06] LABS: CALCIUM 8.8 mg/dL (8.5-10.1); CREATININE 0.5 mg/dL (0.6-1.0); EST CRCL DRUG DOSING (CG) 139.58 mL/min; MAGNESIUM 1.8 mg/dL (1.8-2.4); POTASSIUM,K 2.9 mmol/L (3.5-5.1)
[2023-01-11] MEDS ORDERED: Potassium Chloride 20 MEQ Tab.ER PO ONE (08:30)
[2023-01-11] MEDS: Escitalopram 10 MG Tab PO SCH (09:34)
[2023-01-11] MEDS: cefTRIAXone 1 GM in Sodium Chloride 0.9% 50 ML IV SCH (09:34)
[2023-01-11] MEDS: Potassium Chloride 20 MEQ in Premix Bag 1 BAG IV SCH ×2 (11:03→13:53)
[2023-01-11] MEDS ORDERED: Calcium Carbonate 500 MG Tab.Chew PO PRN (14:46)
[2023-01-11] MEDS: Polyethylene Glycol 3350 Powder 17 GM Packet PO SCH (15:26)
[2023-01-11] MEDS: Pantoprazole 40 MG in Sodium Chloride 0.9% 10 ML IVPUSH SCH (16:36)
[2023-01-11] MEDS ORDERED: diphenhydrAMINE 25 MG Cap PO PRN (21:00)
[2023-01-12] MEDS: Ondansetron 4 MG/2 ML SDV IVPUSH PRN ×2 (00:10→06:21)
[2023-01-12] MEDS: HYDROmorphone 1 MG/ML Syringe IVPUSH PRN ×4 (00:12→10:43)
[2023-01-12] MEDS: ClonazePAM 1 MG Tab PO PRN ×2 (00:16→22:54)
[2023-01-12] MEDS: Promethazine 25 MG/ML SDV IM PRN ×3 (02:51→22:54)
[2023-01-12 06:16] LABS: BASOPHILS PERCENT AUTO 0.2 % (0.0-1.5); EOSINOPHILS PERCENT AUTO 0.1 % (0.0-7.0); HEMATOCRIT 38.1 % (36.0-46.0); HEMOGLOBIN 12.6 g/dL (12.0-16.0); LYMPHOCYTES ABSOLUTE AUTO 2.7 K/uL (0.6-2.4); LYMPHOCYTES PERCENT AUTO 20.6 % (16.0-40.0); MEAN CORPUSCULAR HEMOGLOBIN 29.2 pg (27.0-32.0); MEAN CORPUSCULAR HGB CONC 33.1 g/dL (31.0-37.0); MEAN CORPUSCULAR VOLUME 88.4 fL (80.0-98.0); MONOCYTES ABSOLUTE AUTO 0.8 K/uL (0.0-0.8); MONOCYTES PERCENT AUTO 5.9 % (0.0-15.0); NEUTROPHILS ABSOLUTE AUTO 9.5 K/uL (1.4-5.7); NEUTROPHILS PERCENT AUTO 73.2 % (48.0-80.0); NRBC ABSOLUTE 0 K/uL; PLATELET COUNT,PLT 332 K/uL (150-400); RED BLOOD CELL COUNT 4.31 M/uL (4.30-5.90); WHITE BLOOD CELL COUNT,WBC 13.01 K/uL (4.0-11.0)
[2023-01-12 06:37] LABS: A/G RATIO 0.9 (0.9-1.6); ALBUMIN 3.4 g/dL (3.4-5.0); BILIRUBIN TOTAL 0.5 mg/dL (0.2-1.0); CALCIUM 8.8 mg/dL (8.5-10.1); CARBON DIOXIDE,CO2 23.5 mmol/L (21.0-32.0); CREATININE 0.5 mg/dL (0.6-1.0); EST CRCL DRUG DOSING (CG) 139.58 mL/min; MAGNESIUM 1.8 mg/dL (1.8-2.4); POTASSIUM,K 3.5 mmol/L (3.5-5.1)
[2023-01-12] MEDS: Escitalopram 10 MG Tab PO SCH (07:59)
[2023-01-12] MEDS: Polyethylene Glycol 3350 Powder 17 GM Packet PO SCH (08:01)
[2023-01-12] MEDS: Lactated Ringers 1,000 ML IV SCH ×2 (10:51→22:55)
[2023-01-12] MEDS: cefTRIAXone 1 GM in Sodium Chloride 0.9% 50 ML IV SCH (10:59)
[2023-01-12] MEDS: Metoclopramide 10 MG/2 ML SDV IVPUSH SCH ×2 (12:48→17:18)
[2023-01-12] MEDS: Multivitamin Tab PO SCH (12:57)
[2023-01-12] MEDS: Vitamin B6-pyridOXINE 50 MG Tab PO SCH (12:57)
[2023-01-12] MEDS: Pantoprazole 40 MG in Sodium Chloride 0.9% 10 ML IVPUSH SCH (17:11)
[2023-01-12] MEDS: DOXYLAMINE 25 MG PO SCH (20:07)
[2023-01-12] MEDS: Acetaminophen 325 MG Tab PO PRN (20:07)
[2023-01-13] MEDS: Metoclopramide 10 MG/2 ML SDV IVPUSH SCH ×5 (00:12→23:41)
[2023-01-13] MEDS: Acetaminophen 325 MG Tab PO PRN (05:08)
[2023-01-13 06:26] LABS: BASOPHILS PERCENT AUTO 0.2 % (0.0-1.5); EOSINOPHILS PERCENT AUTO 0.4 % (0.0-7.0); HEMATOCRIT 36.8 % (36.0-46.0); HEMOGLOBIN 12.7 g/dL (12.0-16.0); LYMPHOCYTES ABSOLUTE AUTO 2.5 K/uL (0.6-2.4); LYMPHOCYTES PERCENT AUTO 27.4 % (16.0-40.0); MEAN CORPUSCULAR HGB CONC 34.5 g/dL (31.0-37.0); MEAN CORPUSCULAR VOLUME 86.8 fL (80.0-98.0); MONOCYTES ABSOLUTE AUTO 0.6 K/uL (0.0-0.8); MONOCYTES PERCENT AUTO 6.4 % (0.0-15.0); NEUTROPHILS PERCENT AUTO 65.6 % (48.0-80.0); NRBC ABSOLUTE 0 K/uL; PLATELET COUNT,PLT 310 K/uL (150-400); RED BLOOD CELL COUNT 4.24 M/uL (4.30-5.90); WHITE BLOOD CELL COUNT,WBC 9.09 K/uL (4.0-11.0)
[2023-01-13 06:53] LABS: A/G RATIO 0.9 (0.9-1.6); ALBUMIN 3.2 g/dL (3.4-5.0); BILIRUBIN TOTAL 0.6 mg/dL (0.2-1.0); CALCIUM 8.6 mg/dL (8.5-10.1); CARBON DIOXIDE,CO2 21.9 mmol/L (21.0-32.0); CREATININE 0.6 mg/dL (0.6-1.0); EST CRCL DRUG DOSING (CG) 116.32 mL/min; MAGNESIUM 1.7 mg/dL (1.8-2.4); POTASSIUM,K 2.8 mmol/L (3.5-5.1); PROTEIN TOTAL,TP 6.8 g/dL (6.4-8.2)
[2023-01-13] MEDS ORDERED: Magnesium Sulfate/Water 2 GM in Premix Bag 1 BAG IV ONE (07:15)
[2023-01-13] MEDS: Promethazine 25 MG/ML SDV IM PRN ×2 (07:23→21:42)
[2023-01-13] MEDS: Lactated Ringers 1,000 ML IV SCH ×2 (07:29→21:23)
[2023-01-13] MEDS: Potassium Chloride 100 ML IV SCH ×4 (08:52→16:33)
[2023-01-13] MEDS: Multivitamin Tab PO SCH (09:00)
[2023-01-13] MEDS: Escitalopram 10 MG Tab PO SCH (09:00)
[2023-01-13] MEDS: Vitamin B6-pyridOXINE 50 MG Tab PO SCH (09:01)
[2023-01-13] MEDS: Ondansetron 4 MG/2 ML SDV IVPUSH PRN (10:18)
[2023-01-13] MEDS: Polyethylene Glycol 3350 Powder 17 GM Packet PO SCH ×2 (10:23→21:24)
[2023-01-13] MEDS: cefTRIAXone 1 GM in Sodium Chloride 0.9% 50 ML IV SCH (11:41)
[2023-01-13] MEDS: Pantoprazole 40 MG in Sodium Chloride 0.9% 10 ML IVPUSH SCH (16:27)
[2023-01-13 17:52] LABS: CALCIUM 8.5 mg/dL (8.5-10.1); CARBON DIOXIDE,CO2 22.8 mmol/L (21.0-32.0); CREATININE 0.4 mg/dL (0.6-1.0); EST CRCL DRUG DOSING (CG) 174.48 mL/min; MAGNESIUM 2.2 mg/dL (1.8-2.4); POTASSIUM,K 3.7 mmol/L (3.5-5.1)
[2023-01-13] MEDS: DOXYLAMINE 25 MG PO SCH (21:24)
[2023-01-13] MEDS: ClonazePAM 1 MG Tab PO PRN (22:12)
[2023-01-14] MEDS: Promethazine 25 MG/ML SDV IM PRN (04:31)
[2023-01-14] MEDS: Acetaminophen 325 MG Tab PO PRN (04:31)
[2023-01-14] MEDS: Lactated Ringers 1,000 ML IV SCH (05:38)
[2023-01-14] MEDS: Metoclopramide 10 MG/2 ML SDV IVPUSH SCH (05:39)
[2023-01-14 05:56] LABS: BASOPHILS PERCENT AUTO 0.2 % (0.0-1.5); EOSINOPHILS ABSOLUTE AUTO 0.1 K/uL (0.0-0.7); EOSINOPHILS PERCENT AUTO 0.8 % (0.0-7.0); HEMATOCRIT 35.9 % (36.0-46.0); HEMOGLOBIN 11.8 g/dL (12.0-16.0); LYMPHOCYTES ABSOLUTE AUTO 3.6 K/uL (0.6-2.4); LYMPHOCYTES PERCENT AUTO 35.7 % (16.0-40.0); MEAN CORPUSCULAR HEMOGLOBIN 29.2 pg (27.0-32.0); MEAN CORPUSCULAR HGB CONC 32.9 g/dL (31.0-37.0); MEAN CORPUSCULAR VOLUME 88.9 fL (80.0-98.0); MONOCYTES ABSOLUTE AUTO 0.7 K/uL (0.0-0.8); MONOCYTES PERCENT AUTO 7.1 % (0.0-15.0); NEUTROPHILS ABSOLUTE AUTO 5.7 K/uL (1.4-5.7); NEUTROPHILS PERCENT AUTO 56.2 % (48.0-80.0); NRBC ABSOLUTE 0 K/uL; PLATELET COUNT,PLT 311 K/uL (150-400); RED BLOOD CELL COUNT 4.04 M/uL (4.30-5.90); WHITE BLOOD CELL COUNT,WBC 10.07 K/uL (4.0-11.0)
[2023-01-14 06:20] LABS: A/G RATIO 0.9 (0.9-1.6); ALBUMIN 2.7 g/dL (3.4-5.0); BILIRUBIN TOTAL 0.3 mg/dL (0.2-1.0); CALCIUM 8.5 mg/dL (8.5-10.1); CARBON DIOXIDE,CO2 24.3 mmol/L (21.0-32.0); CREATININE 0.7 mg/dL (0.6-1.0); EST CRCL DRUG DOSING (CG) 99.7 mL/min; MAGNESIUM 1.8 mg/dL (1.8-2.4); POTASSIUM,K 3.1 mmol/L (3.5-5.1); PROTEIN TOTAL,TP 5.8 g/dL (6.4-8.2)
[2023-01-14] MEDS ORDERED: Potassium Chloride 20 MEQ Tab.ER PO ONE (08:09)
[2023-01-14] MEDS: Escitalopram 10 MG Tab PO SCH (08:32)
[2023-01-14] MEDS: Vitamin B6-pyridOXINE 50 MG Tab PO SCH (08:32)
[2023-01-14] MEDS: Multivitamin Tab PO SCH (08:32)
[2023-01-14] MEDS: Polyethylene Glycol 3350 Powder 17 GM Packet PO SCH ×2 (08:33→09:51)
[2023-01-14] MEDS: Ondansetron 4 MG/2 ML SDV IVPUSH PRN (09:54)
[2023-01-14] MEDS: cefTRIAXone 1 GM in Sodium Chloride 0.9% 50 ML IV SCH (09:58)
== END 2023-01-14 12:50 | disposition home or self-care (01) | DRG 832 ==
LOC: MW.ED 06:25 → MW.MS 11:09
PROVIDERS: ADMIT Internal Medicine; ATTEND Internal Medicine
DX: O21.0 Mild hyperemesis gravidarum (principal); O21.1 Hyperemesis gravidarum with metabolic disturbance; E87.20 Acidosis, unspecified; O10.912 Unspecified pre-existing hypertension complicating pregnancy, second trimester; O99.112 Other diseases of the blood and blood-forming organs and certain disorders involving the immune mechanism complicating pregnancy, second trimester; O99.342 Other mental disorders complicating pregnancy, second trimester; F41.9 Anxiety disorder, unspecified; F31.9 Bipolar disorder, unspecified; Z20.822 Contact with and (suspected) exposure to COVID-19; O99.212 Obesity complicating pregnancy, second trimester; O99.282 Endocrine, nutritional and metabolic diseases complicating pregnancy, second trimester; E86.0 Dehydration; E83.42 Hypomagnesemia; Z3A.14 14 weeks gestation of pregnancy; Z86.16 Personal history of COVID-19
CPT/HCPCS: 36415; 76775; 80053; 80305; 81001; 83605; 83735; 85025; 87040 ×2; 87086; 87635; 93005; 96361; 96365; 96366; 96368; 96372; 96375; 99285; J1200; J2270; J2550; J2765; J3475; J3480; J3490 ×2; J7030; J7050; 76815; 76815-26; 80048; 82947; 93010; 99222; 99231; 99232; 99239; 99284; A9270-GY; C9113; J0696; J1170; J2405; J7120; U0002

== ENCOUNTER 2023-03-21 07:41 | Emergency (ER) | payer SELFPAY ==
[2023-03-21] MEDS ORDERED: Metoclopramide 10 MG/2 ML SDV IVPUSH ONE (07:55)
[2023-03-21] MEDS ORDERED: Sodium Chloride 0.9% 1,000 ML IV ONE (07:55)
[2023-03-21 08:14] LABS: BASOPHILS ABSOLUTE AUTO 0.03 K/uL (0.00-0.20); BASOPHILS PERCENT AUTO 0.2 % (0.0-1.0); EOSINOPHILS ABSOLUTE AUTO 0.05 K/uL (0.00-0.45); EOSINOPHILS PERCENT AUTO 0.3 % (0.0-6.0); HEMATOCRIT 37.7 % (37.0-47.0); IMMATURE GRAN ABSOLUTE AUTO 0.11 K/uL (0.00-0.05); IMMATURE GRAN PERCENT AUTO 0.7 % (0.0-0.4); LYMPHOCYTES ABSOLUTE AUTO 3.74 K/uL (1.00-4.80); MEAN CORPUSCULAR HEMOGLOBIN 30.1 pg (28.0-32.0); MEAN CORPUSCULAR HGB CONC 34.5 g/dL (32.0-36.0); MEAN CORPUSCULAR VOLUME 87.3 fL (83.0-99.0); MEAN PLATELET VOLUME 9.4 fL (9.4-12.3); MONOCYTES ABSOLUTE AUTO 0.72 K/uL (0.00-0.80); MONOCYTES PERCENT AUTO 4.6 % (0.0-8.0); NEUTROPHILS ABSOLUTE AUTO 10.92 K/uL (1.80-7.70); NEUTROPHILS PERCENT AUTO 70.2 % (41.0-71.0); PLATELET COUNT,PLT 401 K/uL (150-400); RED BLOOD CELL COUNT 4.32 M/uL (4.10-5.30); WHITE BLOOD CELL COUNT,WBC 15.57 K/uL (3.9-11.3)
[2023-03-21 08:29] LABS: A/G RATIO 0.8 (0.9-1.6); ALBUMIN 3.7 g/dL (3.4-5.0); BILIRUBIN TOTAL 0.3 mg/dL (0.2-1.0); CALCIUM 10.1 mg/dL (8.5-10.1); CARBON DIOXIDE,CO2 24.3 mmol/L (21.0-32.0); CREATININE 0.8 mg/dL (0.6-1.0); EST CRCL DRUG DOSING (CG) 87.24 mL/min; PROTEIN TOTAL,TP 8.2 g/dL (6.4-8.2)
== END 2023-03-21 09:32 | disposition home or self-care (01) ==
LOC: MW.ED 07:41
DX: O21.2 Late vomiting of pregnancy (principal); O10.912 Unspecified pre-existing hypertension complicating pregnancy, second trimester; O99.512 Diseases of the respiratory system complicating pregnancy, second trimester; J45.909 Unspecified asthma, uncomplicated; O99.212 Obesity complicating pregnancy, second trimester; Z86.16 Personal history of COVID-19; Z79.899 Other long term (current) drug therapy; Z3A.23 23 weeks gestation of pregnancy
CPT/HCPCS: 36415; 80053; 85025; 96361; 96374; 99284; J2765; J7030

== ENCOUNTER 2023-04-26 17:02 | Emergency (ER) | payer SELFPAY ==
[2023-04-26 18:03] LABS: BASOPHILS ABSOLUTE AUTO 0.02 K/uL (0.00-0.20); BASOPHILS PERCENT AUTO 0.1 % (0.0-1.0); HEMATOCRIT 36.1 % (37.0-47.0); HEMOGLOBIN 12.5 g/dL (12.0-16.0); IMMATURE GRAN ABSOLUTE AUTO 0.13 K/uL (0.00-0.05); IMMATURE GRAN PERCENT AUTO 0.7 % (0.0-0.4); LYMPHOCYTES ABSOLUTE AUTO 1.46 K/uL (1.00-4.80); LYMPHOCYTES PERCENT AUTO 7.3 % (24.0-44.0); MEAN CORPUSCULAR HGB CONC 34.6 g/dL (32.0-36.0); MEAN CORPUSCULAR VOLUME 86.8 fL (83.0-99.0); MEAN PLATELET VOLUME 9.7 fL (9.4-12.3); MONOCYTES ABSOLUTE AUTO 0.56 K/uL (0.00-0.80); MONOCYTES PERCENT AUTO 2.8 % (0.0-8.0); NEUTROPHILS ABSOLUTE AUTO 17.71 K/uL (1.80-7.70); NEUTROPHILS PERCENT AUTO 89.1 % (41.0-71.0); PLATELET COUNT,PLT 392 K/uL (150-400); RED BLOOD CELL COUNT 4.16 M/uL (4.10-5.30); WHITE BLOOD CELL COUNT,WBC 19.88 K/uL (3.9-11.3)
[2023-04-26 18:30] LABS: A/G RATIO 0.8 (0.9-1.6); ALANINE AMINOTRANSFERASE,ALT 22 IU/L (14-63); ALBUMIN 3.6 g/dL (3.4-5.0); ALKALINE PHOSPHATASE 93 U/L (46-116); ASPARTATE AMNIOTRANSFERASE,AST 16 IU/L (15-37); BILIRUBIN TOTAL 0.6 mg/dL (0.2-1.0); BLOOD UREA NITROGEN,BUN 10 mg/dL (7.0-18.0); CALCIUM 9.7 mg/dL (8.5-10.1); CARBON DIOXIDE,CO2 18.4 mmol/L (21.0-32.0); CHLORIDE,CL 99 mmol/L (98-107); CREATININE 0.8 mg/dL (0.6-1.0); GLUCOSE RANDOM 167 mg/dL (74-106); PROTEIN TOTAL,TP 8.1 g/dL (6.4-8.2); SODIUM,NA 138 mmol/L (136-145)
[2023-04-26 18:33] LABS: ESTIMATED GFR 107 mL/min (>60)
== END 2023-04-26 17:15 | disposition still patient (30) ==
LOC: MW.ED 17:02
DX: O99.893 Other specified diseases and conditions complicating puerperium (principal); R07.9 Chest pain, unspecified; O10.013 Pre-existing essential hypertension complicating pregnancy, third trimester; O99.213 Obesity complicating pregnancy, third trimester; Z86.16 Personal history of COVID-19; Z88.5 Allergy status to narcotic agent; Z3A.28 28 weeks gestation of pregnancy
CPT/HCPCS: 36415; 80053; 84484; 85025; 93005; 93010; 99282; 99285

== ENCOUNTER 2023-04-26 22:05 | Observation (INO) | payer SELFPAY ==
[2023-04-26] MEDS ORDERED: Sodium Chloride 0.9% 1,000 ML IV ONE (22:38)
[2023-04-26] MEDS ORDERED: Sodium Chloride 0.9% 10 ML Syringe FLUSH PRN (22:38)
[2023-04-26] MEDS ORDERED: Sodium Chloride 0.9% 2.5 ML Syringe FLUSH PRN (22:38)
[2023-04-26] MEDS ORDERED: Metoclopramide 10 MG/2 ML SDV IVPUSH ONE (22:39)
[2023-04-26 23:09] LABS: BILIRUBIN,URINE NEGATIVE (NEGATIVE); COLOR,URINE YELLOW; GLUCOSE,URINE NEGATIVE (NEGATIVE); KETONES,URINE >=80 mg/dL (NEGATIVE); LEUKOCYTE ESTERASE,URINE NEGATIVE (NEGATIVE); NITRITE,URINE NEGATIVE (NEGATIVE); OCCULT BLOOD,URINE MODERATE (NEGATIVE); PROTEIN,URINE 100 mg/dL (NEGATIVE); UROBILINOGEN,URINE 0.2 EU/dL (<2.0)
[2023-04-26 23:11] LABS: APPEARANCE,URINE HAZY
[2023-04-26 23:15] LABS: BACTERIA,URINE FEW (NEGATIVE); EPITHELIAL CELLS,URINE FEW (NONE-FEW); MUCUS,URINE LIGHT (NONE-MOD); WBC,URINE 0-2 (0-5/HPF)
[2023-04-26 23:16] LABS: AMPHETAMINES SCREEN, URINE NEGATIVE (CUTOFF=500); BARBITURATE SCREEN,URINE NEGATIVE (CUTOFF=200); BENZODIAZEPINES SCREEN,URINE PRESUMPTIVE POSITIVE (CUTOFF=150); BUPRENORPHINE SCREEN,URINE NEGATIVE (CUTOFF=10); METHADONE SCREEN, URINE NEGATIVE (CUTOFF=200); METHAMPHETAMINES SCREEN, URINE NEGATIVE (CUTOFF=500); OXYCODONE SCREEN,URINE NEGATIVE (CUT0FF=100); PCP SCREEN,URINE NEGATIVE (CUTOFF=25); THC SCREEN,URINE 20 NG/ML PRESUMPTIVE POSITIVE (CUTOFF=50)
[2023-04-26 23:20] LABS: INR 1.04 (0.86-1.11)
[2023-04-26 23:34] LABS: LACTIC ACID 1.1 mmol/L (0.4-2.0)
[2023-04-27] MEDS ORDERED: Potassium Chloride 20 MEQ Tab.ER PO STA (01:43)
[2023-04-27] MEDS ORDERED: Promethazine 25 MG/ML SDV IM ONE (01:55)
[2023-04-27 02:12] LABS: BASOPHILS ABSOLUTE AUTO 0.02 K/uL (0.00-0.20); BASOPHILS PERCENT AUTO 0.1 % (0.0-1.0); HEMATOCRIT 35.2 % (37.0-47.0); HEMOGLOBIN 12.1 g/dL (12.0-16.0); IMMATURE GRAN ABSOLUTE AUTO 0.12 K/uL (0.00-0.05); IMMATURE GRAN PERCENT AUTO 0.6 % (0.0-0.4); LYMPHOCYTES ABSOLUTE AUTO 2.12 K/uL (1.00-4.80); LYMPHOCYTES PERCENT AUTO 11.3 % (24.0-44.0); MEAN CORPUSCULAR HGB CONC 34.4 g/dL (32.0-36.0); MEAN CORPUSCULAR VOLUME 87.3 fL (83.0-99.0); MEAN PLATELET VOLUME 9.5 fL (9.4-12.3); MONOCYTES ABSOLUTE AUTO 0.62 K/uL (0.00-0.80); MONOCYTES PERCENT AUTO 3.3 % (0.0-8.0); NEUTROPHILS ABSOLUTE AUTO 15.89 K/uL (1.80-7.70); NEUTROPHILS PERCENT AUTO 84.7 % (41.0-71.0); PLATELET COUNT,PLT 372 K/uL (150-400); RED BLOOD CELL COUNT 4.03 M/uL (4.10-5.30); WHITE BLOOD CELL COUNT,WBC 18.77 K/uL (3.9-11.3)
[2023-04-27 02:29] LABS: CALCIUM 9.3 mg/dL (8.5-10.1); CARBON DIOXIDE,CO2 24.9 mmol/L (21.0-32.0); CREATININE 0.7 mg/dL (0.6-1.0); EST CRCL DRUG DOSING (CG) 99.7 mL/min; POTASSIUM,K 3.2 mmol/L (3.5-5.1)
[2023-04-27] MEDS ORDERED: Potassium Chloride 20 MEQ in Premix Bag 1 BAG IV ONE (02:45)
[2023-04-27] MEDS ORDERED: Sodium Chloride 0.9% 250 ML IV ONE (03:00)
[2023-04-27] MEDS ORDERED: Famotidine 20 MG/2 ML SDV IVPUSH ONE (05:08)
[2023-04-27] MEDS ORDERED: Ondansetron 4 MG/2 ML SDV IVPUSH PRN (05:15)
[2023-04-27] MEDS ORDERED: LORazepam 2 MG/ML SDV IVPUSH ONE (05:25)
[2023-04-27] MEDS ORDERED: Thiamine 100 MG in Sodium Chloride 0.9% 100 ML IV ONE (05:26)
[2023-04-27] MEDS ORDERED: Citric Acid/Sodium Citrate Solution 30 ML Cup PO ONE ×2 (05:28→05:29)
[2023-04-27] MEDS ORDERED: Folic Acid 1 MG/0.2 ML UD Syringe IV ONE (05:30)
[2023-04-27] MEDS ORDERED: Thiamine 200 MG/2 ML MDV IV ONE (05:30)
[2023-04-27] MEDS ORDERED: Sodium Chloride 0.9% 1,000 ML IV SCH (05:30)
[2023-04-27] MEDS: Promethazine 25 MG/ML SDV IM PRN ×2 (08:17→16:06)
[2023-04-27 08:35] LABS: BASOPHILS ABSOLUTE AUTO 0.02 K/uL (0.00-0.20); BASOPHILS PERCENT AUTO 0.1 % (0.0-1.0); HEMATOCRIT 30.7 % (37.0-47.0); HEMOGLOBIN 10.7 g/dL (12.0-16.0); IMMATURE GRAN ABSOLUTE AUTO 0.12 K/uL (0.00-0.05); IMMATURE GRAN PERCENT AUTO 0.7 % (0.0-0.4); LYMPHOCYTES ABSOLUTE AUTO 2.29 K/uL (1.00-4.80); LYMPHOCYTES PERCENT AUTO 12.8 % (24.0-44.0); MEAN CORPUSCULAR HEMOGLOBIN 30.5 pg (28.0-32.0); MEAN CORPUSCULAR HGB CONC 34.9 g/dL (32.0-36.0); MEAN CORPUSCULAR VOLUME 87.5 fL (83.0-99.0); MEAN PLATELET VOLUME 9.5 fL (9.4-12.3); MONOCYTES ABSOLUTE AUTO 1.08 K/uL (0.00-0.80); NEUTROPHILS ABSOLUTE AUTO 14.36 K/uL (1.80-7.70); NEUTROPHILS PERCENT AUTO 80.4 % (41.0-71.0); PLATELET COUNT,PLT 322 K/uL (150-400); RED BLOOD CELL COUNT 3.51 M/uL (4.10-5.30); WHITE BLOOD CELL COUNT,WBC 17.87 K/uL (3.9-11.3)
[2023-04-27] MEDS ORDERED: Fluticasone NASAL Spray 16 GM Bottle NASBOTH SCH ×2 (10:15→12:15)
[2023-04-27] MEDS ORDERED: Azithromycin 500 MG in Sodium Chloride 0.9% 250 ML IV ONE (11:00)
[2023-04-27 12:10] LABS: HEMATOCRIT 31.8 % (37.0-47.0); HEMOGLOBIN 10.8 g/dL (12.0-16.0); MEAN CORPUSCULAR VOLUME 88.3 fL (83.0-99.0); MEAN PLATELET VOLUME 9.6 fL (9.4-12.3); PLATELET COUNT,PLT 353 K/uL (150-400); WHITE BLOOD CELL COUNT,WBC 19.48 K/uL (3.9-11.3)
[2023-04-27] MEDS ORDERED: Fluticasone NASAL Spray 16 GM Bottle ONE (12:18)
[2023-04-27 13:02] LABS: LYMPHOCYTES ABSOLUTE MAN 2.34 K/uL (1.00-4.80); LYMPHOCYTES PERCENT MAN 12 % (24-44); MONOCYTES ABSOLUTE MAN 0.97 K/uL (0.00-0.80); MONOCYTES PERCENT MAN 5 % (0-8); SEG NEUTROPHILS ABSOLUTE MAN 16.17 K/uL (1.80-7.70); SEG NEUTROPHILS PERCENT MAN 83 % (41-71)
[2023-04-27] MEDS ORDERED: Potassium Chloride 10 MEQ in Premix Bag 1 BAG IV SCH (13:06)
[2023-04-27 13:35] LABS: CALCIUM 8.8 mg/dL (8.5-10.1); CREATININE 0.7 mg/dL (0.6-1.0); EST CRCL DRUG DOSING (CG) 99.7 mL/min; POTASSIUM,K 3.2 mmol/L (3.5-5.1)
[2023-04-27] MEDS: Potassium Chloride 10 MEQ in Premix Bag 1 BAG IV SCH ×2 (14:32→15:41)
[2023-04-27] MEDS ORDERED: Sucralfate Suspension 1 GM/10 ML Cup PO SCH (17:00)
[2023-04-28] MEDS ORDERED: Fluticasone NASAL Spray 16 GM Bottle NASBOTH SCH (12:00)
== END 2023-04-27 17:13 | disposition home or self-care (01) ==
LOC: MW.ED 22:05 → MW.OB 04-27 03:04
PROVIDERS: ADMIT Obstetrics & Gynecology; ATTEND Obstetrics & Gynecology
DX: O21.1 Hyperemesis gravidarum with metabolic disturbance (principal); O99.613 Diseases of the digestive system complicating pregnancy, third trimester; K29.00 Acute gastritis without bleeding; O99.283 Endocrine, nutritional and metabolic diseases complicating pregnancy, third trimester; O99.513 Diseases of the respiratory system complicating pregnancy, third trimester; J45.909 Unspecified asthma, uncomplicated; J01.00 Acute maxillary sinusitis, unspecified; O99.343 Other mental disorders complicating pregnancy, third trimester; F41.9 Anxiety disorder, unspecified; F31.9 Bipolar disorder, unspecified; Z79.899 Other long term (current) drug therapy; Z88.5 Allergy status to narcotic agent
CPT/HCPCS: 36415; 59025; 76700; 80048; 80305; 80307; 81001; 83605; 85007; 85025; 85027; 85610; 86850; 86900; 86901; 90384; A9270; J0456; J2060; J2550; J2765; J3411; J3480; J3490; J7030; J7050; J2790

== ENCOUNTER 2023-07-08 00:06 | Observation (INO) | payer MEDICAID ==
[2023-07-08] MEDS ORDERED: Sodium Chloride 0.9% 10 ML Syringe FLUSH PRN (00:30)
[2023-07-08] MEDS ORDERED: Oxytocin/0.9 % Sodium Chloride 30 UNIT/500 ML BAG IV SCH ×2 (00:30→01:15)
[2023-07-08] MEDS ORDERED: Sodium Chloride 0.9% 2.5 ML Syringe FLUSH PRN (00:30)
[2023-07-08] MEDS ORDERED: Misoprostol 200 MCG Tab PO PRN (00:30)
[2023-07-08] MEDS ORDERED: Sodium Chloride 0.9% 20 ML SDV IV PRN (00:30)
[2023-07-08] MEDS ORDERED: Carboprost Tromethamine 250 MCG/1 mL Vial IM PRN (00:30)
[2023-07-08] MEDS ORDERED: Water For Irrigation,Sterile 1,000 ML Container IRR PRN (00:30)
[2023-07-08] MEDS ORDERED: Methylergonovine 0.2 MG/1 ML Amp IM PRN (00:30)
[2023-07-08] MEDS ORDERED: Nalbuphine 10 MG/0.5 ML Syringe IVPUSH PRN (00:30)
[2023-07-08] MEDS ORDERED: Lidocaine 1% 50 ML MDV INJECT PRN (00:30)
[2023-07-08] MEDS ORDERED: Tranexamic Acid IN NACL,ISO-OS 1,000 MG in Premix Bag 1 BAG IV PRN (00:30)
[2023-07-08] MEDS ORDERED: Terbutaline 1 MG/ML SDV SUBCUT PRN (01:02)
[2023-07-08] MEDS: Lactated Ringers 1,000 ML IV SCH (02:13)
[2023-07-08 02:26] LABS: HEMATOCRIT 34.8 % (37.0-47.0); MEAN CORPUSCULAR HEMOGLOBIN 29.2 pg (28.0-32.0); MEAN CORPUSCULAR HGB CONC 34.5 g/dL (32.0-36.0); MEAN CORPUSCULAR VOLUME 84.7 fL (83.0-99.0); MEAN PLATELET VOLUME 9.6 fL (9.4-12.3); PLATELET COUNT,PLT 357 K/uL (150-400); RED BLOOD CELL COUNT 4.11 M/uL (4.10-5.30); WHITE BLOOD CELL COUNT,WBC 16.05 K/uL (3.9-11.3)
[2023-07-08 02:34] LABS: AMPHETAMINES SCREEN, URINE NEGATIVE (CUTOFF=500); BARBITURATE SCREEN,URINE NEGATIVE (CUTOFF=200); BENZODIAZEPINES SCREEN,URINE PRESUMPTIVE POSITIVE (CUTOFF=150); BUPRENORPHINE SCREEN,URINE NEGATIVE (CUTOFF=10); METHADONE SCREEN, URINE NEGATIVE (CUTOFF=200); METHAMPHETAMINES SCREEN, URINE NEGATIVE (CUTOFF=500); OXYCODONE SCREEN,URINE NEGATIVE (CUT0FF=100); PCP SCREEN,URINE NEGATIVE (CUTOFF=25); THC SCREEN,URINE 20 NG/ML PRESUMPTIVE POSITIVE (CUTOFF=50)
[2023-07-08] MEDS: Ampicillin 2 GM in Sodium Chloride 0.9% 100 ML IV ONE (02:47)
[2023-07-08] MEDS: Misoprostol 25 MCG (1/4 of 100 MCG) Tab VAG PRN ×2 (02:48→11:04)
[2023-07-08] MEDS: Ondansetron 4 MG/2 ML SDV IVPUSH PRN (07:09)
[2023-07-08] MEDS: Ampicillin 1 GM in Sodium Chloride 0.9% 50 ML IV SCH (07:09)
== END 2023-07-08 20:05 | disposition home or self-care (01) ==
LOC: MW.OBCHECK 00:06 → MW.OB 00:07 → MW.OBCHECK 00:30
PROVIDERS: ADMIT Obstetrics & Gynecology; ATTEND Obstetrics & Gynecology Obstetrics
DX: Z34.93 Encounter for supervision of normal pregnancy, unspecified, third trimester (principal); J45.909 Unspecified asthma, uncomplicated; K21.9 Gastro-esophageal reflux disease without esophagitis; Z79.899 Other long term (current) drug therapy; Z3A.36 36 weeks gestation of pregnancy
CPT/HCPCS: 36415; 59025; 80305; 85027; 86592; 86850; 86900; 86901; A9270; J0290; J2405; J3490; J7120

== ENCOUNTER 2023-07-14 17:31 | Inpatient (IN) | payer MEDICAID ==
[2023-07-14] MEDS ORDERED: Terbutaline 1 MG/ML SDV SUBCUT PRN (18:07)
[2023-07-14] MEDS ORDERED: Methylergonovine 0.2 MG/1 ML Amp IM PRN (18:14)
[2023-07-14] MEDS ORDERED: Misoprostol 200 MCG Tab PO PRN (18:14)
[2023-07-14] MEDS ORDERED: Sodium Chloride 0.9% 10 ML Syringe FLUSH PRN (18:14)
[2023-07-14] MEDS ORDERED: Water For Irrigation,Sterile 1,000 ML Container IRR PRN (18:14)
[2023-07-14] MEDS ORDERED: Butorphanol 2 MG/ML SDV IVPUSH PRN (18:14)
[2023-07-14] MEDS ORDERED: Sodium Chloride 0.9% 20 ML SDV IV PRN (18:14)
[2023-07-14] MEDS ORDERED: Lidocaine 1% 50 ML MDV INJECT PRN (18:14)
[2023-07-14] MEDS ORDERED: Tranexamic Acid IN NACL,ISO-OS 1,000 MG in Premix Bag 1 BAG IV PRN (18:14)
[2023-07-14] MEDS ORDERED: Carboprost Tromethamine 250 MCG/1 mL Vial IM PRN (18:14)
[2023-07-14] MEDS ORDERED: Sodium Chloride 0.9% 2.5 ML Syringe FLUSH PRN (18:14)
[2023-07-14] MEDS ORDERED: Oxytocin/0.9 % Sodium Chloride 30 UNIT/500 ML BAG IV SCH (18:15)
[2023-07-14] MEDS ORDERED: ePHEDrine 50 MG/ML SDV IVPUSH PRN ×2 (18:43)
[2023-07-14] MEDS ORDERED: Phenylephrine HCl 0.5 MG/5 ML AMP IVPUSH PRN (18:43)
[2023-07-14] MEDS: Misoprostol 25 MCG (1/4 of 100 MCG) Tab PO ONE (19:08)
[2023-07-14] MEDS: Ampicillin 2 GM in Sodium Chloride 0.9% 100 ML IV ONE (19:09)
[2023-07-14] MEDS: Misoprostol 25 MCG (1/4 of 100 MCG) Tab VAG PRN (19:10)
[2023-07-14] MEDS: Lactated Ringers 1,000 ML IV SCH (19:11)
[2023-07-14 19:20] LABS: HEMATOCRIT 36.2 % (37.0-47.0); HEMOGLOBIN 12.5 g/dL (12.0-16.0); MEAN CORPUSCULAR HEMOGLOBIN 28.9 pg (28.0-32.0); MEAN CORPUSCULAR HGB CONC 34.5 g/dL (32.0-36.0); MEAN CORPUSCULAR VOLUME 83.8 fL (83.0-99.0); MEAN PLATELET VOLUME 10.1 fL (9.4-12.3); PLATELET COUNT,PLT 379 K/uL (150-400); RED BLOOD CELL COUNT 4.32 M/uL (4.10-5.30); WHITE BLOOD CELL COUNT,WBC 13.09 K/uL (3.9-11.3)
[2023-07-14] MEDS ORDERED: Misoprostol 25 MCG (1/4 of 100 MCG) Tab PO ONE (22:30)
[2023-07-14] MEDS: Ampicillin 1 GM in Sodium Chloride 0.9% 50 ML IV SCH (23:57)
[2023-07-15] MEDS: Misoprostol 25 MCG (1/4 of 100 MCG) Tab VAG PRN (00:02)
[2023-07-15] MEDS: Misoprostol 25 MCG (1/4 of 100 MCG) Tab PO SCH (00:03)
[2023-07-15] MEDS: Acetaminophen 500 MG Tab PO ONE (01:50)
[2023-07-15] MEDS: Ondansetron 4 MG/2 ML SDV IVPUSH PRN (01:51)
[2023-07-15] MEDS: Nalbuphine 10 MG/0.5 ML Syringe IVPUSH ONE (02:05)
[2023-07-15] MEDS ORDERED: Nalbuphine 10 MG/0.5 ML Syringe IVPUSH PRN (05:49)
[2023-07-15] MEDS ORDERED: dexmedeTOMIDine HCl 200 MCG/2 ML SDV ONE (06:43)
[2023-07-15] MEDS ORDERED: Bupivacaine 0.25% 30 ML SDV ONE (06:47)
[2023-07-15] MEDS: Ropivacaine HCl/PF 400 MG in Premix Bag 1 BAG EPIDUR SCH (06:51)
[2023-07-15 09:02] LABS: AMPHETAMINES SCREEN, URINE NEGATIVE (CUTOFF=500); BARBITURATE SCREEN,URINE NEGATIVE (CUTOFF=200); BENZODIAZEPINES SCREEN,URINE PRESUMPTIVE POSITIVE (CUTOFF=150); BUPRENORPHINE SCREEN,URINE NEGATIVE (CUTOFF=10); METHADONE SCREEN, URINE NEGATIVE (CUTOFF=200); METHAMPHETAMINES SCREEN, URINE NEGATIVE (CUTOFF=500); OXYCODONE SCREEN,URINE NEGATIVE (CUT0FF=100); PCP SCREEN,URINE NEGATIVE (CUTOFF=25); THC SCREEN,URINE 20 NG/ML PRESUMPTIVE POSITIVE (CUTOFF=50)
[2023-07-15] MEDS: Oxytocin/0.9 % Sodium Chloride 30 UNIT/500 ML BAG IV SCH (10:10)
[2023-07-15] MEDS ORDERED: Sennosides 8.6 MG Tab PO PRN (13:22)
[2023-07-15] MEDS ORDERED: Lanolin 100% Cream 7 GM Tube TOP PRN (13:22)
[2023-07-15] MEDS ORDERED: Bisacodyl 10 MG Supp RECTAL PRN (13:22)
[2023-07-15] MEDS ORDERED: Docusate Sodium 100 MG Cap PO PRN (13:22)
[2023-07-15] MEDS ORDERED: Benzocaine/Menthol 20%-0.5% Spray 78 GM Cannister TOP PRN (13:22)
[2023-07-15] MEDS ORDERED: Witch Hazel Medicated Pads 40/Jar TOP PRN (13:22)
[2023-07-15] MEDS ORDERED: diphenhydrAMINE 50 MG Cap PO PRN (13:22)
[2023-07-15] MEDS: Acetaminophen 500 MG Tab PO PRN (15:35)
[2023-07-15] MEDS: Ibuprofen 800 MG Tab PO PRN (17:48)
[2023-07-15] MEDS: hydrOXYzine HCl 25 MG Tab PO PRN (20:03)
[2023-07-15] MEDS ORDERED: hydrOXYzine HCl 25 MG Tab PO SCH ×2 (21:00)
[2023-07-16 07:06] LABS: HEMATOCRIT 36.2 % (37.0-47.0); HEMOGLOBIN 12.3 g/dL (12.0-16.0)
[2023-07-16] MEDS ORDERED: Fluticasone NASAL Spray 16 GM Bottle NASBOTH SCH (09:00)
[2023-07-16] MEDS ORDERED: Azithromycin 250 MG Tab PO SCH (09:00)
[2023-07-16] MEDS: Iron Polysaccharides Complex 150 MG Cap PO SCH (09:46)
[2023-07-16] MEDS: Cyclobenzaprine 10 MG Tab PO ONE (12:39)
== END 2023-07-16 15:30 | disposition home or self-care (01) | DRG 807 ==
LOC: MW.OB 17:31 → OBSVTOIN 17:31 → UNDOADMOB 17:31 → INTOOBSV 17:31 → OBSVTOIN 07-15 10:09 → MW.OB 07-15 10:09 → UNDODISIN 07-16 15:30
PROVIDERS: ADMIT Obstetrics & Gynecology Gynecology; ATTEND Obstetrics & Gynecology Gynecology
PROC: 10E0XZZ Delivery of Products of Conception, External Approach (ICD-10-PCS; principal; 2023-07-16)
PROC: 3E0P7VZ Introduction of Hormone into Female Reproductive, Via Natural or Artificial Opening (ICD-10-PCS; 2023-07-16)
PROC: 10907ZC Drainage of Amniotic Fluid, Therapeutic from Products of Conception, Via Natural or Artificial Opening (ICD-10-PCS; 2023-07-16)
DX: O26.893 Other specified pregnancy related conditions, third trimester (principal); Z37.0 Single live birth; O99.214 Obesity complicating childbirth; O77.0 Labor and delivery complicated by meconium in amniotic fluid; O99.824 Streptococcus B carrier state complicating childbirth; F41.9 Anxiety disorder, unspecified; F32.A Depression, unspecified; O99.344 Other mental disorders complicating childbirth; O99.324 Drug use complicating childbirth; F12.90 Cannabis use, unspecified, uncomplicated; Z67.11 Type A blood, Rh negative; Z3A.39 39 weeks gestation of pregnancy
CPT/HCPCS: 01967; 36415; 51702; 59025; 59409; 80305-QW; 85014; 85018; 85027; 85460; 86592; 86850; 86900; 86901; A9270-GY; J0290; J0665; J2300; J2405; J2590; J2795; J3490; J7120

== ENCOUNTER 2023-12-03 02:52 | Emergency (ER) | payer MEDICAID ==
[2023-12-03] MEDS: Amoxicillin/Clavulanate K 875-125 MG Tab PO ONE (03:17)
[2023-12-03] MEDS: Diphtheria,Pertussis(Acell),Tetanus Vaccine 0.5 ML Syringe IM ONE (03:17)
== END 2023-12-03 03:21 | disposition home or self-care (01) ==
LOC: MW.ED 02:52
DX: S01.85XA Open bite of other part of head, initial encounter (principal); Z75.8 Other problems related to medical facilities and other health care; Z23 Encounter for immunization; W54.0XXA Bitten by dog, initial encounter
CPT/HCPCS: 82947; 90471; 90715; 99283; A9270

== ENCOUNTER 2024-03-15 15:09 | Emergency (ER) | payer MEDICAID ==
[2024-03-15 16:35] LABS: CORONAVIRUS COVID-19 NAA NEGATIVE (NEGATIVE); INFLUENZA A NAA NEGATIVE (NEGATIVE); INFLUENZA B NAA NEGATIVE (NEGATIVE)
[2024-03-15] MEDS: Ondansetron 4 MG/2 ML SDV IVPUSH ONE (16:52)
[2024-03-15] MEDS: Ketorolac 30 MG/ML SDV IVPUSH ONE (16:52)
[2024-03-15] MEDS: Sodium Chloride 0.9% 1,000 ML IV ONE (16:52)
[2024-03-15 17:05] LABS: BASOPHILS ABSOLUTE AUTO 0.04 K/uL (0.00-0.20); BASOPHILS PERCENT AUTO 0.3 % (0.0-1.0); EOSINOPHILS ABSOLUTE AUTO 0.04 K/uL (0.00-0.45); EOSINOPHILS PERCENT AUTO 0.3 % (0.0-6.0); HEMATOCRIT 39.5 % (37.0-47.0); HEMOGLOBIN 13.6 g/dL (12.0-16.0); IMMATURE GRAN ABSOLUTE AUTO 0.11 K/uL (0.00-0.05); IMMATURE GRAN PERCENT AUTO 0.7 % (0.0-0.4); LYMPHOCYTES ABSOLUTE AUTO 2.18 K/uL (1.00-4.80); LYMPHOCYTES PERCENT AUTO 14.6 % (24.0-44.0); MEAN CORPUSCULAR HEMOGLOBIN 30.8 pg (28.0-32.0); MEAN CORPUSCULAR HGB CONC 34.4 g/dL (32.0-36.0); MEAN CORPUSCULAR VOLUME 89.4 fL (83.0-99.0); MEAN PLATELET VOLUME 9.1 fL (9.4-12.3); MONOCYTES ABSOLUTE AUTO 0.63 K/uL (0.00-0.80); MONOCYTES PERCENT AUTO 4.2 % (0.0-8.0); NEUTROPHILS ABSOLUTE AUTO 11.96 K/uL (1.80-7.70); NEUTROPHILS PERCENT AUTO 79.9 % (41.0-71.0); PLATELET COUNT,PLT 363 K/uL (150-400); RED BLOOD CELL COUNT 4.42 M/uL (4.10-5.30); WHITE BLOOD CELL COUNT,WBC 14.96 K/uL (3.9-11.3)
[2024-03-15 17:27] LABS: BILIRUBIN TOTAL 0.6 mg/dL (0.2-1.0); CALCIUM 9.4 mg/dL (8.5-10.1); CARBON DIOXIDE,CO2 24.5 mmol/L (21.0-32.0); CREATININE 0.6 mg/dL (0.6-1.0); EST CRCL DRUG DOSING (CG) 115.33 mL/min; POTASSIUM,K 3.8 mmol/L (3.5-5.1); PROTEIN TOTAL,TP 7.9 g/dL (6.4-8.2)
[2024-03-15 19:36] LABS: APPEARANCE,URINE CLEAR; BILIRUBIN,URINE NEGATIVE (NEGATIVE); COLOR,URINE YELLOW; GLUCOSE,URINE NEGATIVE (NEGATIVE); KETONES,URINE >=80 mg/dL (NEGATIVE); LEUKOCYTE ESTERASE,URINE NEGATIVE (NEGATIVE); NITRITE,URINE NEGATIVE (NEGATIVE); OCCULT BLOOD,URINE NEGATIVE (NEGATIVE); PH,URINE 6.5 (5.0-8.0); PROTEIN,URINE TRACE mg/dL (NEGATIVE); UROBILINOGEN,URINE 0.2 EU/dL (<2.0)
[2024-03-15 19:46] LABS: BACTERIA,URINE RARE (NEGATIVE); EPITHELIAL CELLS,URINE RARE (NONE-FEW); RBC,URINE 0-1 (0-2/HPF); WBC,URINE 0-2 (0-5/HPF)
== END 2024-03-15 20:07 | disposition home or self-care (01) ==
LOC: MW.ED 15:09
DX: O99.611 Diseases of the digestive system complicating pregnancy, first trimester (principal); K52.9 Noninfective gastroenteritis and colitis, unspecified; Z3A.08 8 weeks gestation of pregnancy; Z75.8 Other problems related to medical facilities and other health care; I10 Essential (primary) hypertension; J45.909 Unspecified asthma, uncomplicated; E66.9 Obesity, unspecified; Z68.41 Body mass index [BMI] 40.0-44.9, adult
CPT/HCPCS: 0240U; 36415; 76817; 80053; 81001; 83690; 84702; 84703; 85025; 96361; 96374; 96375; 99284; J1885; J2405; J7030

== ENCOUNTER 2024-04-27 11:21 | Emergency (ER) | payer MEDICAID ==
[2024-04-27] MEDS: Ondansetron 4 MG/2 ML SDV IVPUSH STA (13:48)
[2024-04-27] MEDS: Sodium Chloride 0.9% 1,000 ML IV STA ×2 (13:48→16:33)
[2024-04-27 13:49] LABS: BASOPHILS ABSOLUTE AUTO 0.02 K/uL (0.00-0.20); BASOPHILS PERCENT AUTO 0.1 % (0.0-1.0); HEMATOCRIT 34.6 % (37.0-47.0); HEMOGLOBIN 11.9 g/dL (12.0-16.0); IMMATURE GRAN ABSOLUTE AUTO 0.06 K/uL (0.00-0.05); IMMATURE GRAN PERCENT AUTO 0.4 % (0.0-0.4); LYMPHOCYTES ABSOLUTE AUTO 1.45 K/uL (1.00-4.80); LYMPHOCYTES PERCENT AUTO 9.9 % (24.0-44.0); MEAN CORPUSCULAR HEMOGLOBIN 30.4 pg (28.0-32.0); MEAN CORPUSCULAR HGB CONC 34.4 g/dL (32.0-36.0); MEAN CORPUSCULAR VOLUME 88.5 fL (83.0-99.0); MEAN PLATELET VOLUME 9.6 fL (9.4-12.3); MONOCYTES ABSOLUTE AUTO 0.38 K/uL (0.00-0.80); MONOCYTES PERCENT AUTO 2.6 % (0.0-8.0); NEUTROPHILS ABSOLUTE AUTO 12.73 K/uL (1.80-7.70); PLATELET COUNT,PLT 314 K/uL (150-400); RED BLOOD CELL COUNT 3.91 M/uL (4.10-5.30); WHITE BLOOD CELL COUNT,WBC 14.64 K/uL (3.9-11.3)
[2024-04-27 14:18] LABS: ALBUMIN 3.5 g/dL (3.4-5.0); BILIRUBIN TOTAL 0.2 mg/dL (0.2-1.0); CALCIUM 9.3 mg/dL (8.5-10.1); CARBON DIOXIDE,CO2 22.7 mmol/L (21.0-32.0); CREATININE 0.8 mg/dL (0.6-1.0); EST CRCL DRUG DOSING (CG) 86.5 mL/min; MAGNESIUM 1.7 mg/dL (1.8-2.4); POTASSIUM,K 3.7 mmol/L (3.5-5.1); PROTEIN TOTAL,TP 7.1 g/dL (6.4-8.2)
[2024-04-27] MEDS: Promethazine 25 MG/ML SDV IM STA (15:38)
[2024-04-27] MEDS: Acetaminophen 1,000 MG in Premix Bag 1 BAG IV STA (16:33)
[2024-04-27] MEDS: diphenhydrAMINE 50 MG/ML SDV IVPUSH STA (17:18)
[2024-04-27] MEDS: Metoclopramide 10 MG/2 ML SDV IVPUSH STA (17:18)
== END 2024-04-27 18:33 | disposition home or self-care (01) ==
LOC: MW.ED 11:21
DX: O21.9 Vomiting of pregnancy, unspecified (principal); O99.282 Endocrine, nutritional and metabolic diseases complicating pregnancy, second trimester; E83.42 Hypomagnesemia; R10.2 Pelvic and perineal pain; Z86.16 Personal history of COVID-19; Z79.899 Other long term (current) drug therapy; Z75.8 Other problems related to medical facilities and other health care; Z3A.15 15 weeks gestation of pregnancy
CPT/HCPCS: 36415; 76805; 80053; 83690; 83735; 85025; 96361; 96372; 96374; 96375; 99284; J0131; J1200; J2405; J2550; J2765; J7030

== ENCOUNTER 2024-04-29 22:25 | Emergency (ER) | payer MEDICAID | END 2024-04-29 22:46 | disposition left against medical advice (07) | LOC: MW.ED 22:25 | DX: Z53.21 Procedure and treatment not carried out due to patient leaving prior to being seen by health care provider (principal) ==

== ENCOUNTER 2024-08-04 19:00 | Emergency (ER) | payer MEDICAID ==
[2024-08-04] MEDS ORDERED: Sodium Chloride 0.9% 20 ML SDV IV PRN (19:28)
[2024-08-04] MEDS ORDERED: Sodium Chloride 0.9% 2.5 ML Syringe FLUSH PRN (19:28)
[2024-08-04] MEDS ORDERED: Sodium Chloride 0.9% 10 ML Syringe FLUSH PRN (19:28)
[2024-08-04] MEDS: Lactated Ringers 1,000 ML IV ONE (20:17)
[2024-08-04] MEDS: Morphine 4 MG/ML Syringe IVPUSH ONE ×2 (20:17→22:16)
[2024-08-04] MEDS: Ondansetron 4 MG/2 ML SDV IVPUSH ONE ×2 (20:17→22:16)
[2024-08-04] MEDS: Morphine 4 MG/ML Syringe IM ONE (20:18)
[2024-08-04 20:23] LABS: BASOPHILS ABSOLUTE AUTO 0.03 K/uL (0.00-0.20); BASOPHILS PERCENT AUTO 0.2 % (0.0-1.0); EOSINOPHILS ABSOLUTE AUTO 0.02 K/uL (0.00-0.45); EOSINOPHILS PERCENT AUTO 0.1 % (0.0-6.0); HEMATOCRIT 29.2 % (37.0-47.0); HEMOGLOBIN 9.9 g/dL (12.0-16.0); IMMATURE GRAN ABSOLUTE AUTO 0.09 K/uL (0.00-0.05); IMMATURE GRAN PERCENT AUTO 0.6 % (0.0-0.4); LYMPHOCYTES ABSOLUTE AUTO 2.05 K/uL (1.00-4.80); MEAN CORPUSCULAR HGB CONC 33.9 g/dL (32.0-36.0); MEAN CORPUSCULAR VOLUME 85.6 fL (83.0-99.0); MEAN PLATELET VOLUME 8.9 fL (9.4-12.3); MONOCYTES PERCENT AUTO 5.1 % (0.0-8.0); NEUTROPHILS ABSOLUTE AUTO 12.76 K/uL (1.80-7.70); PLATELET COUNT,PLT 390 K/uL (150-400); RED BLOOD CELL COUNT 3.41 M/uL (4.10-5.30); WHITE BLOOD CELL COUNT,WBC 15.75 K/uL (3.9-11.3)
[2024-08-04 20:47] LABS: A/G RATIO 0.7 (0.9-1.6); ALBUMIN 2.8 g/dL (3.4-5.0); BILIRUBIN TOTAL 0.4 mg/dL (0.2-1.0); CALCIUM 9.2 mg/dL (8.5-10.1); CARBON DIOXIDE,CO2 29.2 mmol/L (21.0-32.0); CREATININE 0.7 mg/dL (0.6-1.0); EST CRCL DRUG DOSING (CG) 89.78 mL/min; MAGNESIUM 1.3 mg/dL (1.8-2.4); POTASSIUM,K 3.2 mmol/L (3.5-5.1); PROTEIN TOTAL,TP 6.7 g/dL (6.4-8.2)
[2024-08-04] MEDS: Potassium Chloride 20 MEQ in Premix Bag 1 BAG IV ONE (21:21)
[2024-08-04] MEDS: Magnesium Sulf/Wat 2 GM/50 mL 2 GM in Premix Bag 1 BAG IV ONE (21:38)
[2024-08-04] MEDS: Magnesium Sulfate (4.06 MEQ/ML) 5 GM/10 ML SDV IV ONE (22:16)
[2024-08-04] MEDS: Magnesium Sulf/Wat 2 GM/50 mL 50 ML ONE (22:17)
== END 2024-08-05 00:47 | disposition other institution (70) ==
LOC: MW.ED 19:00
DX: O26.891 Other specified pregnancy related conditions, first trimester (principal); R10.11 Right upper quadrant pain; R10.13 Epigastric pain; G89.18 Other acute postprocedural pain; O99.283 Endocrine, nutritional and metabolic diseases complicating pregnancy, third trimester; E87.6 Hypokalemia; E83.42 Hypomagnesemia; O10.013 Pre-existing essential hypertension complicating pregnancy, third trimester; Z3A.29 29 weeks gestation of pregnancy; Z79.899 Other long term (current) drug therapy
CPT/HCPCS: 36415; 76705; 80053; 83690; 83735; 85025; 96361; 96365; 96368; 96375; 96376; 99285; J2270; J2405; J3475; J3480; J7120

== ENCOUNTER 2024-09-26 02:13 | Inpatient (IN) | payer MEDICAID ==
[2024-09-26] MEDS: Ondansetron 4 MG Tab.DIS PO PRN (04:51)
[2024-09-26 05:10] LABS: BASOPHILS ABSOLUTE AUTO 0.02 K/uL (0.00-0.20); BASOPHILS PERCENT AUTO 0.2 % (0.0-1.0); EOSINOPHILS ABSOLUTE AUTO 0.14 K/uL (0.00-0.45); EOSINOPHILS PERCENT AUTO 1.3 % (0.0-6.0); HEMATOCRIT 28.8 % (37.0-47.0); HEMOGLOBIN 9.3 g/dL (12.0-16.0); IMMATURE GRAN ABSOLUTE AUTO 0.15 K/uL (0.00-0.05); IMMATURE GRAN PERCENT AUTO 1.4 % (0.0-0.4); LYMPHOCYTES ABSOLUTE AUTO 2.38 K/uL (1.00-4.80); LYMPHOCYTES PERCENT AUTO 21.5 % (24.0-44.0); MEAN CORPUSCULAR HEMOGLOBIN 27.7 pg (28.0-32.0); MEAN CORPUSCULAR HGB CONC 32.3 g/dL (32.0-36.0); MEAN CORPUSCULAR VOLUME 85.7 fL (83.0-99.0); MEAN PLATELET VOLUME 9.3 fL (9.4-12.3); MONOCYTES PERCENT AUTO 8.1 % (0.0-8.0); NEUTROPHILS ABSOLUTE AUTO 7.48 K/uL (1.80-7.70); NEUTROPHILS PERCENT AUTO 67.5 % (41.0-71.0); NRBC ABSOLUTE 0.02 K/uL (0.00-0.02); NRBC PERCENT 0.2 /100WBC (0.0-0.2); PLATELET COUNT,PLT 294 K/uL (150-400); RED BLOOD CELL COUNT 3.36 M/uL (4.10-5.30); WHITE BLOOD CELL COUNT,WBC 11.07 K/uL (3.9-11.3)
[2024-09-26] MEDS: Acetaminophen 500 MG Tab PO PRN (05:11)
[2024-09-26 05:32] LABS: A/G RATIO 0.7 (0.9-1.6); ALBUMIN 2.4 g/dL (3.4-5.0); BILIRUBIN TOTAL 0.3 mg/dL (0.2-1.0); CALCIUM 9.5 mg/dL (8.5-10.1); CARBON DIOXIDE,CO2 26.8 mmol/L (21.0-32.0); CREATININE 0.5 mg/dL (0.6-1.0); EST CRCL DRUG DOSING (CG) 125.69 mL/min; POTASSIUM,K 3.9 mmol/L (3.5-5.1); PROTEIN TOTAL,TP 5.7 g/dL (6.4-8.2)
[2024-09-26 05:36] LABS: CREATININE,URINE RAND 21.8 mg/dL; PROTEIN CREATININE RATIO,URINE 0.4; PROTEIN,URINE RANDOM 9.2 mg/dL (<11.9)
[2024-09-26] MEDS ORDERED: Sodium Chloride 0.9% 2.5 ML Syringe FLUSH PRN (08:21)
[2024-09-26] MEDS ORDERED: Butorphanol 1 MG/ML SDV IVPUSH PRN (08:21)
[2024-09-26] MEDS ORDERED: Methylergonovine 0.2 MG/1 ML Amp IM PRN (08:21)
[2024-09-26] MEDS ORDERED: Lidocaine 1% 50 ML MDV INJECT PRN (08:21)
[2024-09-26] MEDS ORDERED: Terbutaline 1 MG/ML SDV SUBCUT PRN (08:21)
[2024-09-26] MEDS ORDERED: Water For Irrigation,Sterile 1,000 ML Container IRR PRN (08:21)
[2024-09-26] MEDS ORDERED: Misoprostol 25 MCG (1/4 of 100 MCG) Tab VAG PRN ×2 (08:21)
[2024-09-26] MEDS ORDERED: Sodium Chloride 0.9% 20 ML SDV IV PRN (08:21)
[2024-09-26] MEDS ORDERED: Sodium Chloride 0.9% 10 ML Syringe FLUSH PRN (08:21)
[2024-09-26] MEDS: Lactated Ringers 1,000 ML IV SCH (08:55)
[2024-09-26] MEDS ORDERED: Bupivacaine 0.5% 10 ML SDV ONE (09:23)
[2024-09-26] MEDS ORDERED: Ropivacaine HCl/PF 200 ML ONE (09:23)
[2024-09-26] MEDS ORDERED: dexmedeTOMIDine HCl 200 MCG/2 ML SDV ONE (09:23)
[2024-09-26] MEDS ORDERED: Phenylephrine HCl In 0.9% NaCl 1 MG/10 ML Syringe ONE (09:23)
[2024-09-26] MEDS: Ropivacaine HCl/PF 400 MG in Premix Bag 1 BAG EPIDUR SCH (09:33)
[2024-09-26] MEDS ORDERED: ePHEDrine 50 MG/ML SDV IM PRN (09:46)
[2024-09-26] MEDS ORDERED: Phenylephrine HCl In 0.9% NaCl 1 MG/10 ML Syringe IVPUSH PRN (09:46)
[2024-09-26] MEDS ORDERED: ePHEDrine 50 MG/ML SDV IVPUSH PRN (09:46)
[2024-09-26] MEDS ORDERED: dexmedeTOMIDine HCl 200 MCG/2 ML SDV EPIDUR SCH (10:00)
[2024-09-26] MEDS: Oxytocin/0.9 % Sodium Chloride 30 UNIT/500 ML BAG IV SCH ×2 (11:03→23:18)
[2024-09-26] MEDS ORDERED: Calcium Gluconate 10% 1 GM/10 ML SDV IV PRN (11:55)
[2024-09-26 12:25] LABS: A/G RATIO 0.6 (0.9-1.6); ALBUMIN 2.5 g/dL (3.4-5.0); BILIRUBIN TOTAL 0.3 mg/dL (0.2-1.0); CALCIUM 9.7 mg/dL (8.5-10.1); CARBON DIOXIDE,CO2 26.4 mmol/L (21.0-32.0); CREATININE 0.5 mg/dL (0.6-1.0); EST CRCL DRUG DOSING (CG) 125.69 mL/min; POTASSIUM,K 3.7 mmol/L (3.5-5.1); PROTEIN TOTAL,TP 6.4 g/dL (6.4-8.2); URIC ACID 4.9 mg/dL (2.6-7.2)
[2024-09-26] MEDS: Magnesium Sulfate 4 GM/100 mL 4 GM in Premix Bag 1 BAG IV ONE (12:41)
[2024-09-26] MEDS: Magnesium Sulfate 20 GM/500mL 20 GM/500 ML BAG IV SCH (13:11)
[2024-09-26 15:10] LABS: AMPHETAMINES SCREEN, URINE NEGATIVE (CUTOFF=500); BARBITURATE SCREEN,URINE NEGATIVE (CUTOFF=200); BENZODIAZEPINES SCREEN,URINE NEGATIVE (CUTOFF=150); BUPRENORPHINE SCREEN,URINE NEGATIVE (CUTOFF=10); METHADONE SCREEN, URINE NEGATIVE (CUTOFF=200); METHAMPHETAMINES SCREEN, URINE NEGATIVE (CUTOFF=500); OXYCODONE SCREEN,URINE NEGATIVE (CUT0FF=100); PCP SCREEN,URINE NEGATIVE (CUTOFF=25); THC SCREEN,URINE 20 NG/ML PRESUMPTIVE POSITIVE (CUTOFF=50)
[2024-09-26] MEDS: Pantoprazole 40 MG in Sodium Chloride 0.9% 10 ML IVPUSH ONE (19:48)
[2024-09-26] MEDS: Carboprost Tromethamine 250 MCG/1 mL Vial IM PRN (23:18)
[2024-09-26] MEDS: Misoprostol 200 MCG Tab RECTAL PRN (23:55)
[2024-09-26 23:58] LABS: HEMATOCRIT 25.6 % (37.0-47.0); HEMOGLOBIN 8.3 g/dL (12.0-16.0); MEAN CORPUSCULAR HEMOGLOBIN 27.8 pg (28.0-32.0); MEAN CORPUSCULAR HGB CONC 32.4 g/dL (32.0-36.0); MEAN CORPUSCULAR VOLUME 85.6 fL (83.0-99.0); MEAN PLATELET VOLUME 9.4 fL (9.4-12.3); PLATELET COUNT,PLT 266 K/uL (150-400); RED BLOOD CELL COUNT 2.99 M/uL (4.10-5.30)
[2024-09-27] MEDS ORDERED: Naloxone 0.4 MG/ML SDV IVPUSH PRN
[2024-09-27] MEDS: fentaNYL 100 MCG/2 ML SDV IVPUSH ONE (00:15)
[2024-09-27] MEDS: Midazolam 1 MG/ML 2 ML SDV IVPUSH ONE (00:20)
[2024-09-27] MEDS: Tranexamic Acid in NACL,ISO-OS 1,000 MG in Premix Bag 1 BAG IV ONE (00:38)
[2024-09-27 00:41] LABS: A/G RATIO 0.6 (0.9-1.6); ALBUMIN 1.9 g/dL (3.4-5.0); BILIRUBIN TOTAL 0.5 mg/dL (0.2-1.0); CALCIUM 7.4 mg/dL (8.5-10.1); CREATININE 0.5 mg/dL (0.6-1.0); EST CRCL DRUG DOSING (CG) 125.69 mL/min; POTASSIUM,K 3.2 mmol/L (3.5-5.1)
[2024-09-27 00:55] LABS: INR 0.95 (0.86-1.11); PTT,PARTIAL THROMBOPLSTIN TIME 23.7 SEC (23.9-30.7)
[2024-09-27] MEDS: Ondansetron 4 MG/2 ML SDV IVPUSH PRN (02:20)
[2024-09-27] MEDS ORDERED: Docusate Sodium 100 MG Cap PO PRN (02:36)
[2024-09-27] MEDS ORDERED: Witch Hazel Medicated Pads 40/Jar TOP PRN (02:36)
[2024-09-27] MEDS ORDERED: Lanolin 100% Cream 7 GM Tube TOP PRN (02:36)
[2024-09-27] MEDS ORDERED: Benzocaine/Menthol 20%-0.5% Spray 78 GM Cannister TOP PRN (02:36)
[2024-09-27 02:53] LABS: PH,UMBILICAL ARTERIAL 7.34 (7.18-7.38); PH,UMBILICAL VENOUS 7.45 (7.25-7.45)
[2024-09-27] MEDS: Acetaminophen 500 MG Tab PO PRN (03:20)
[2024-09-27] MEDS: Misoprostol 200 MCG Tab PO PRN (03:28)
[2024-09-27] MEDS ORDERED: Carboprost Tromethamine 250 MCG/1 mL Vial IM ONE (04:03)
[2024-09-27] MEDS ORDERED: Loperamide 2 MG Cap PO ONE (06:41)
[2024-09-27 06:47] LABS: HEMATOCRIT 27.1 % (37.0-47.0); HEMOGLOBIN 8.7 g/dL (12.0-16.0)
[2024-09-28] MEDS: Ibuprofen 800 MG Tab PO PRN (04:57)
[2024-09-28] MEDS ORDERED: Acetaminophen/oxyCODONE 325-5 MG Tab PO ONE (07:56)
== END 2024-09-28 17:10 | disposition home or self-care (01) | DRG 807 ==
LOC: MW.OBCHECK 02:13 → MW.OB 02:14 → MW.OBCHECK 08:42 → MW.OB 13:25 → OBSVTOIN 22:22 → MW.OB 09-27 23:21
PROVIDERS: ADMIT Obstetrics & Gynecology Obstetrics; ATTEND Obstetrics & Gynecology Obstetrics
PROC: 10E0XZZ Delivery of Products of Conception, External Approach (ICD-10-PCS; principal; 2024-09-26)
PROC: 3E0R3BZ Introduction of Anesthetic Agent into Spinal Canal, Percutaneous Approach (ICD-10-PCS; 2024-09-26)
PROC: 10907ZC Drainage of Amniotic Fluid, Therapeutic from Products of Conception, Via Natural or Artificial Opening (ICD-10-PCS; 2024-09-26)
PROC: 3E033VJ Introduction of Other Hormone into Peripheral Vein, Percutaneous Approach (ICD-10-PCS; 2024-09-26)
DX: O14.14 Severe pre-eclampsia complicating childbirth (principal); Z37.0 Single live birth; O99.214 Obesity complicating childbirth; O99.02 Anemia complicating childbirth; Z3A.36 36 weeks gestation of pregnancy; Z90.49 Acquired absence of other specified parts of digestive tract; Z98.890 Other specified postprocedural states; Z79.899 Other long term (current) drug therapy
CPT/HCPCS: 01967; 36410; 36415; 51702; 51703; 59025; 59409; 59899; 80053; 80305; 82570; 82803; 83615; 83735; 84156; 84550; 85014; 85018; 85025; 85027; 85384; 85460; 85610; 85730; 86592; 86850; 86900; 86901; 86920; 86921; 86922; A9270-GY; J0665; J2250; J2371; J2405; J2470; J2590; J2791; J2795; J3010; J3475; J3490; J7120

== ENCOUNTER 2025-02-26 01:12 | Emergency (ER) | payer MEDICAID ==
[2025-02-26 01:28] LABS: BASOPHILS ABSOLUTE AUTO 0.04 K/uL (0.00-0.20); BASOPHILS PERCENT AUTO 0.5 % (0.0-1.0); EOSINOPHILS ABSOLUTE AUTO 0.22 K/uL (0.00-0.45); EOSINOPHILS PERCENT AUTO 2.6 % (0.0-6.0); IMMATURE GRAN ABSOLUTE AUTO 0.02 K/uL (0.00-0.05); IMMATURE GRAN PERCENT AUTO 0.2 % (0.0-0.4); LYMPHOCYTES ABSOLUTE AUTO 3.33 K/uL (1.00-4.80); LYMPHOCYTES PERCENT AUTO 39.0 % (24.0-44.0); MEAN PLATELET VOLUME 8.6 fL (9.4-12.3); MONOCYTES ABSOLUTE AUTO 0.52 K/uL (0.00-0.80); MONOCYTES PERCENT AUTO 6.1 % (0.0-8.0); NEUTROPHILS ABSOLUTE AUTO 4.40 K/uL (1.80-7.70); NEUTROPHILS PERCENT AUTO 51.6 % (41.0-71.0); NRBC ABSOLUTE 0.00 K/uL (0.00-0.02); NRBC PERCENT 0.0 /100WBC (0.0-0.2); PLATELET COUNT,PLT 435 K/uL (150-400); RED BLOOD CELL COUNT 4.58 M/uL (4.10-5.30); WHITE BLOOD CELL COUNT,WBC 8.53 K/uL (3.9-11.3)
[2025-02-26 01:41] LABS: INR < 0.93 (0.86-1.11)
[2025-02-26 02:32] LABS: A/G RATIO 0.9 (0.9-1.6); ALANINE AMINOTRANSFERASE,ALT 62 IU/L (14-63); ASPARTATE AMNIOTRANSFERASE,AST 34 IU/L (15-37); BILIRUBIN TOTAL 0.4 mg/dL (0.2-1.0); BLOOD UREA NITROGEN,BUN 14 mg/dL (7.0-18.0); CARBON DIOXIDE,CO2 27.2 mmol/L (21.0-32.0); CHLORIDE,CL 102 mmol/L (98-107); CREATININE 0.5 mg/dL (0.6-1.0); ETHANOL BLOOD MEDICAL 120 mg/dL; GLUCOSE RANDOM 102 mg/dL (74-106); POTASSIUM,K 3.5 mmol/L (3.5-5.1); PRO B-TYPE NATRIUR PEPT,BNPPRO 120 pg/mL (0-125); PROTEIN TOTAL,TP 7.6 g/dL (6.4-8.2); SODIUM,NA 142 mmol/L (136-145)
[2025-02-26 02:33] LABS: ESTIMATED GFR 134 mL/min (>60)
== END 2025-02-26 02:30 ==
LOC: MW.ED 01:12
DX: Z02.89 Encounter for other administrative examinations (principal); F10.120 Alcohol abuse with intoxication, uncomplicated; F41.0 Panic disorder [episodic paroxysmal anxiety]; R06.4 Hyperventilation; R45.83 Excessive crying of child, adolescent or adult; R06.02 Shortness of breath; R07.9 Chest pain, unspecified; I10 Essential (primary) hypertension; E66.9 Obesity, unspecified; K21.9 Gastro-esophageal reflux disease without esophagitis; Z79.899 Other long term (current) drug therapy; Z90.49 Acquired absence of other specified parts of digestive tract; Y90.6 Blood alcohol level of 120-199 mg/100 ml
CPT/HCPCS: 36415; 71045; 71045-26; 80053; 80307; 83690; 83735; 83880; 84484; 84703; 85025; 85610; 93005; 93010; 99283; 99285